=== PATIENT | female | born 1960 | race Caucasian/White ===

== ENCOUNTER 2017-09-25 14:14 | Emergency (ER) | payer BC ==
[~2017-09-25] VITALS: Ht 175.3 cm; Wt 78.6 kg
[2017-09-25 14:25] VITALS: BP 114/59; PULSE 67; RESP 19; O2SAT 97
[2017-09-25 14:29] VITALS: BP 114/59; PULSE 72; RESP 18; TEMP 98.1; O2SAT 95
[2017-09-25] MEDS ORDERED: LEVO.05 PO (14:33)
[2017-09-25] MEDS ORDERED: ROBA500T PO (14:33)
[2017-09-25] MEDS ORDERED: GABA600T PO (14:33)
--- NOTE | 2017-09-25 14:44 | PD ---
HPI Chief Complaint: Fall Time Seen by Provider: 14:26 Travel History International Travel<30 days: No Contact w/Intl Traveler<30days: No Traveled to known affect area: No History of Present Illness HPI The patient is a 56-year-old female who presents to the emergency department via EMS for right rib pain. The patient states she fell 2 days ago, after drinking alcohol, and a parking lot. Patient states she struck the lateral aspect of the right chest wall on an object. She complains of pain over the right lateral chest wall that is worse with inspiration, movement, and palpation. She denied any head injury or loss of consciousness. She denies any headache, neck pain, left-sided chest pain, or shortness of breath. She denies any associated nausea, vomiting, or abdominal pain. She has been drinking alcohol today. She denies any weakness or pain of the upper or lower extremities. PFSH Past Medical History Anxiety: Yes Depression: Yes ?: Not Tubal Ligation: Yes Past Surgical History Tonsillectomy: Yes Social History Alcohol Use: Yes Tobacco Use: Yes Substance Use: No Allergies-Medications (Allergen,Severity, Reaction): Coded Allergies: No Known Allergies (Unverified , 09/25/17) Reported Meds & Prescriptions Reported Meds & Active Scripts Active Reported Synthroid (Levothyroxine Sodium) 50 Mcg Tab 50 Mcg PO DAILY Gabapentin 600 Mg Tab 600 Mg PO TID Robaxin (Methocarbamol) 500 Mg Tab 500 Mg PO PRN Review of Systems Except as stated in HPI: all other systems reviewed are Neg HENT: No: Headaches, Neck Pain Cardiovascular: Positive: Chest Pain or Discomfort (right lateral chest wall pain) Respiratory: No: Shortness of Breath Gastrointestinal: No: Nausea, Vomiting, Abdominal Pain Musculoskeletal: No: Weakness Neurologic: No: Change in Mentation Psychiatric: Positive: Substance Abuse (alcohol use) Physical Exam Narrative GENERAL: Awake, alert, pleasant 56-year-old female who appears her stated age and is in no acute respiratory distress. The exam was performed in the presence of a female nurse. SKIN: Focused skin assessment warm/dry. HEAD: Atraumatic. Normocephalic. EYES: Pupils equal and round. No scleral icterus. No injection or drainage. ENT: No nasal bleeding or discharge. Breath smells of alcohol. NECK: Trachea midline. No JVD. CARDIOVASCULAR: Regular rate and rhythm. No murmur appreciated. Right lateral chest wall is tender to palpation, no crepitus. RESPIRATORY: No accessory muscle use. Clear to auscultation. Breath sounds equal bilaterally. GASTROINTESTINAL: Abdomen soft, non-tender, nondistended. No tenderness in the right or left upper quadrants. No visible ecchymosis. MUSCULOSKELETAL: No obvious deformities. No clubbing. No cyanosis. No edema. NEUROLOGICAL: Awake and alert. No obvious cranial nerve deficits. Motor grossly within normal limits. Normal speech. Nonfocal. Oriented 3. PSYCHIATRIC: Appropriate mood and affect; insight and judgment normal. Data Data Last Documented VS Vital Signs Date Time Temp Pulse Resp B/P (MAP) Pulse Ox O2 Delivery O2 Flow Rate FiO2 09/25/17 14:29 98.1 72 18 114/59 (77) 95 Room Air Orders Orders Ribs, Uni (W/O Exp Cxr) (09/25/17 ) Ketorolac Inj (Toradol Inj) (09/25/17 14:45) Basic Metabolic Panel (Bmp) (09/25/17 15:52) Complete Blood Count With Diff (09/25/17 15:52) Ct Thorax/ Chest W Iv Contrast (09/25/17 ) Ct Abdomen W Iv Contrast(Rout) (09/25/17 ) Alcohol (Ethanol) (09/25/17 15:52) Oral Contrast - Adult (09/25/17 16:02) Morphine Inj (Morphine Inj) (09/25/17 16:45) Ondansetron Inj (Zofran Inj) (09/25/17 16:45) Iohexol 350 Inj (Omnipaque 350 Inj) (09/25/17 18:08) Labs Laboratory Tests Test 09/25/17 16:18 White Blood Count 11.2 TH/MM3 Red Blood Count 4.33 MIL/MM3 Hemoglobin 13.0 GM/DL Hematocrit 38.2 % Mean Corpuscular Volume 88.3 FL Mean Corpuscular Hemoglobin 30.1 PG Mean Corpuscular Hemoglobin Concent 34.1 % Red Cell Distribution Width 15.5 % Platelet Count 357 TH/MM3 Mean Platelet Volume 7.2 FL Neutrophils (%) (Auto) 63.8 % Lymphocytes (%) (Auto) 29.3 % Monocytes (%) (Auto) 4.7 % Eosinophils (%) (Auto) 1.5 % Basophils (%) (Auto) 0.7 % Neutrophils # (Auto) 7.1 TH/MM3 Lymphocytes # (Auto) 3.3 TH/MM3 Monocytes # (Auto) 0.5 TH/MM3 Eosinophils # (Auto) 0.2 TH/MM3 Basophils # (Auto) 0.1 TH/MM3 CBC Comment DIFF FINAL Differential Comment Blood Urea Nitrogen 11 MG/DL Creatinine 0.80 MG/DL Random Glucose 75 MG/DL Calcium Level 8.0 MG/DL Sodium Level 138 MEQ/L Potassium Level 3.6 MEQ/L Chloride Level 104 MEQ/L Carbon Dioxide Level 25.2 MEQ/L Anion Gap 9 MEQ/L Estimat Glomerular Filtration Rate 75 ML/MIN Ethyl Alcohol Level 251 MG/DL MDM Medical Decision Making Medical Screen Exam Complete: Yes Emergency Medical Condition: Yes Medical Record Reviewed: Yes Interpretation(s) Laboratory Tests Test 09/25/17 16:18 White Blood Count 11.2 TH/MM3 Red Blood Count 4.33 MIL/MM3 Hemoglobin 13.0 GM/DL Hematocrit 38.2 % Mean Corpuscular Volume 88.3 FL Mean Corpuscular Hemoglobin 30.1 PG Mean Corpuscular Hemoglobin Concent 34.1 % Red Cell Distribution Width 15.5 % Platelet Count 357 TH/MM3 Mean Platelet Volume 7.2 FL Neutrophils (%) (Auto) 63.8 % Lymphocytes (%) (Auto) 29.3 % Monocytes (%) (Auto) 4.7 % Eosinophils (%) (Auto) 1.5 % Basophils (%) (Auto) 0.7 % Neutrophils # (Auto) 7.1 TH/MM3 Lymphocytes # (Auto) 3.3 TH/MM3 Monocytes # (Auto) 0.5 TH/MM3 Eosinophils # (Auto) 0.2 TH/MM3 Basophils # (Auto) 0.1 TH/MM3 CBC Comment DIFF FINAL Differential Comment Blood Urea Nitrogen 11 MG/DL Creatinine 0.80 MG/DL Random Glucose 75 MG/DL Calcium Level 8.0 MG/DL Sodium Level 138 MEQ/L Potassium Level 3.6 MEQ/L Chloride Level 104 MEQ/L Carbon Dioxide Level 25.2 MEQ/L Anion Gap 9 MEQ/L Estimat Glomerular Filtration Rate 75 ML/MIN Ethyl Alcohol Level 251 MG/DL Last Impressions Ribs X-Ray 09/25/17 0000 Signed Impressions: Service Date/Time: Monday, September 25, 2017 15:20 - CONCLUSION: Right seventh posterior rib fracture. Sree Good MD CT thorax reveals bibasilar subsegmental atelectasis. Subtle acute lower lateral rib fractures on the right. Thyromegaly. CT abdomen reveals no abdominal visceral injury. Differential Diagnosis Differential diagnosis includes rib fracture, chest wall contusion, pneumothorax , hemothorax, liver laceration, pulmonary contusion. Narrative Course Expiratory chest x-ray and lateral right rib x-ray was ordered. The patient was administered Toradol 60 mg IM for pain. Chest x-ray reveals posterior right seventh rib fracture. Therefore, CT of the thorax and abdomen was ordered to evaluate for possible underlying injury as the patient is intoxicated. IV was established and labs were sent. CT reveals fractures of the ribs, but no pneumothorax, hemothorax, pulmonary contusion, or abdominal visceral injury. The patient will be discharged home on ibuprofen and [place]. She is advised to stop drinking Diagnosis Primary Impression: Rib fractures Qualified Codes: S22.41XA - Multiple fractures of ribs, right side, initial encounter for closed fracture Additional Impression: Alcohol intoxication Qualified Codes: F10.920 - Alcohol use, unspecified with intoxication, uncomplicated Patient Instructions: General Instructions Additional Instructions: Stop drinking alcohol. Please provide the patient a copy of her x-ray results and CT results at discharge. Medications as directed. Follow-up with a primary physician. Return if symptoms worsen or progress. Med/Other Pt SpecificInfo: Prescription(s) given Scripts Hydrocodone-Acetaminophen ([place]) 5 Mg-325 Mg Tab 1 TAB PO Q6H Y for PAIN, #15 TAB 0 Refills Prov: Osito Villeda MD 09/25/17 Ibuprofen (Ibuprofen) 600 Mg Tab 600 MG PO Q6H Y for Pain/Inflammation, #20 TAB 0 Refills Prov: Osito Villeda MD 09/25/17 Disposition: DISCHARGE HOME Condition: Stable Osito Villeda MD Sep 25, 2017 14:44
[2017-09-25] MEDS ORDERED: KETOROLAC TROMETHAMINE 60 MG/2 ML (IM) VIAL IM ONE (14:45)
--- NOTE | 2017-09-25 15:43 | RADRPT ---
EXAM DATE/TIME: 09/25/2017 15:20 [facility] COMPARISON: No previous studies available for comparison. INDICATIONS : Right sided rib pain. MEDICAL HISTORY : None. SURGICAL HISTORY : None. ENCOUNTER: Initial ACUITY: 2 days PAIN SCORE: 10/10 LOCATION: Right middle chest FINDINGS: Multiple views of the right ribs were performed. There is fracture of right posterior seventh rib. No destructive lesions or areas of periosteal thickening are seen. CONCLUSION: Right seventh posterior rib fracture. Sree Good MD on September 25, 2017 at 15:40 Board Certified Radiologist. This report was verified electronically.
[2017-09-25 16:32] LABS: AUTOMATED NEUTROPHIL # 7.1 TH/MM3 (1.8-7.7); BASOPHIL # 0.1 TH/MM3 (0-0.2); BASOPHIL % 0.7 % (0.0-2.0); EOSINOPHIL # 0.2 TH/MM3 (0-0.4); EOSINOPHIL % 1.5 % (0.0-4.0); HEMATOCRIT 38.2 % (35.0-46.0); LYMPH % 29.3 % (9.0-44.0); LYMPHOCYTE # 3.3 TH/MM3 (1.0-4.8); MEAN CELL VOLUME 88.3 FL (80.0-100.0); MEAN CORPUSCULAR HEMOGLOBIN 30.1 PG (27.0-34.0); MEAN CORPUSCULAR HGB CONC 34.1 % (32.0-36.0); MEAN PLATELET VOLUME 7.2 FL (7.0-11.0); MONO % 4.7 % (0.0-8.0); MONOCYTE # 0.5 TH/MM3 (0-0.9); NEUT % 63.8 % (16.0-70.0); PLATELET COUNT 357 TH/MM3 (150-450); RED BLOOD COUNT 4.33 MIL/MM3 (4.00-5.30); RED CELL DISTRIBUTION WIDTH 15.5 % (11.6-17.2); WHITE BLOOD COUNT 11.2 TH/MM3 (4.0-11.0)
[2017-09-25] MEDS ORDERED: ONDANSETRON HCL 4 MG/2 ML VIAL IV PUSH ONE (16:45)
[2017-09-25] MEDS ORDERED: MORPHINE SULFATE 4 MG/ML INJ IV PUSH ONE (16:45)
[2017-09-25 17:21] LABS: BICARBONATE 25.2 MEQ/L (21.0-32.0); CREATININE 0.8 MG/DL (0.50-1.00)
[2017-09-25] MEDS ORDERED: IOHEXOL 350 MG/ML 10 ML VIAL (for RAD DIAG) IVCONTRAST ONE (18:08)
--- NOTE | 2017-09-25 18:13 | RADRPT ---
EXAM DATE/TIME: 09/25/2017 17:45 [facility] COMPARISON: No previous studies available for comparison. INDICATIONS : Fell 2 days ago complains of right side pain IV CONTRAST: 100 cc Omnipaque 350 (iohexol) IV ; Cumulative dose for multiple exams. RADIATION DOSE: 5.37 CTDIvol (mGy) ; Combined studies - Thorax/Abdomen/Pelvis MEDICAL HISTORY : None SURGICAL HISTORY : Tubal ligation. ENCOUNTER: Initial ACUITY: 2 days PAIN SCALE: 6/10 LOCATION: Right chest TECHNIQUE: Volumetric scanning of the chest was performed. Using automated exposure control and adjustment of t he mA and/or kV according to patient size, radiation dose was kept as low as reasonably achievable to obtain optimal diagnostic quality images. DICOM format image data is available electronically for review and comparison. Follow-up recommendations for detected pulmonary nodules are based at a minimum on nodule size and pa tient risk factors according to Fleischner Society Guidelines. FINDINGS: LUNGS: There is no consolidation or pneumothorax. Minimal bibasilar densities. No concerning pulmonary nodul e is visualized. PLEURA: There is no pleural thickening or pleural effusion. MEDIASTINUM: The heart and great vessels demonstrate no acute abnormality. There is no mediastinal or hilar lymph adenopathy. AXILLAE: Within normal limits. No lymphadenopathy. SKELETAL: There are some subtle right lower lateral rib fractures. There is also old rib fractures.. MISCELLANEOUS: The visualized upper abdominal organs demonstrate no acute abnormality. Enlarged thyroid gland contai tiffanie small nodules. CONCLUSION: 1. Bibasilar subsegmental atelectasis. 2. Subtle acute lower lateral rib fractures on the right. 3. Thyroidmegaly. Sree Good MD on September 25, 2017 at 18:08 Board Certified Radiologist. This report was verified electronically.
--- NOTE | 2017-09-25 18:14 | RADRPT ---
EXAM DATE/TIME: 09/25/2017 17:45 [facility] COMPARISON: No previous studies available for comparison. INDICATIONS : Fell right sided pain. IV CONTRAST: 100 cc Omnipaque 350 (iohexol) IV ; Cumulative dose for multiple exams. ORAL CONTRAST: No oral contrast ingested. RADIATION DOSE: 5.37 CTDIvol (mGy) ; Combined studies - Thorax/Abdomen/Pelvis MEDICAL HISTORY : None SURGICAL HISTORY : Tubal ligation. ENCOUNTER: Initial ACUITY: 2 days PAIN SCALE: 6/10 LOCATION: Right upper quadrant TECHNIQUE: Volumetric scanning of the abdomen was performed. Using automated exposure control and adjustment of the mA and/or kV according to patient size, radiation dose was kept as low as reasonably achievable to obtain optimal diagnostic quality images. DICOM format image data is available electronically for review and comparison. FINDINGS: LOWER LUNGS: The visualized lower lungs are clear. LIVER: Homogeneous density without lesion. There is no dilation of the biliary tree. No calcified gallstones . SPLEEN: Normal size without lesion. PANCREAS: Within normal limits. KIDNEYS: Normal in size and shape. There is no mass, stone, or hydronephrosis. ADRENAL GLANDS: Within normal limits. AORTA/RETROPERITONEAL: There is no aneurysm or lymphadenopathy. BOWEL/MESENTERY: The stomach and visualized small and large bowel demonstrate no abnormality. ABDOMINAL WALL: Within normal limits. MUSCULOSKELETAL: Subtle right-sided rib fractures. POST CONTRAST: No abnormal areas of enhancement are seen. CONCLUSION: 1. No abdominal visceral injury. Sree Good MD on September 25, 2017 at 18:11 Board Certified Radiologist. This report was verified electronically.
[2017-09-25] MEDS ORDERED: IBUP-232 PO (18:21)
[2017-09-25] MEDS ORDERED: NORC5TAB PO (18:21)
[2017-09-25 18:26] VITALS: BP 104/61; PULSE 62; RESP 18; O2SAT 95
[2017-09-25] MEDS ORDERED: BUSP15TA PO (21:24)
== END 2017-09-25 21:34 | disposition home or self-care (01) ==
LOC: NEPE 14:14
DX: S22.41XA Multiple fractures of ribs, right side, initial encounter for closed fracture (principal); F10.920 Alcohol use, unspecified with intoxication, uncomplicated; F32.9 Major depressive disorder, single episode, unspecified; F41.9 Anxiety disorder, unspecified; J98.11 Atelectasis; Z72.0 Tobacco use; Z79.899 Other long term (current) drug therapy; W18.00XA Striking against unspecified object with subsequent fall, initial encounter; Y92.481 Parking lot as the place of occurrence of the external cause
CPT/HCPCS: 71100; 71260; 74160; 80048; 80307; 85025; 96372; 96374; 96375; 99285; J1885; J2270; J2405; Q9967

== ENCOUNTER 2017-09-25 21:13 | Observation (INO) | payer BC, OTHER ==
[~2017-09-25] VITALS: Ht 167.6 cm; Wt 75.0 kg
[~2017-09-25 21:13] MED LIST: GABA600T PO; IBUP-232 PO; LEVO.05 PO; NORC5TAB PO; ROBA500T PO
[2017-09-25 21:19] VITALS: BP 93/61; PULSE 66; RESP 16; TEMP 97.8; O2SAT 97
[2017-09-25] MEDS ORDERED: BUSP15TA PO (21:24)
[2017-09-25] MEDS ORDERED: SODIUM CHLOR 0.9% 1000 ML INJ 1,000 ML IV ONE ×2 (21:26→23:15)
[2017-09-25] MEDS ORDERED: SODIUM CHLORIDE 0.9% FLUSH 10 ML FLUSH IVF PRN (21:30)
[2017-09-25 21:33] VITALS: O2SAT 91
--- NOTE | 2017-09-25 21:34 | PD ---
HPI Chief Complaint: OD/ Ingestion Time Seen by Provider: 21:25 Travel History International Travel<30 days: No Contact w/Intl Traveler<30days: No Traveled to known affect area: No History of Present Illness HPI The patient is a 56 year old female who presents to the [facility] emergency department with a history of intentional overdose of her gabapentin and BuSpar prior to arrival arrival. She reports that this occurred at approximately 8 PM, nearly 2 hours ago. The patient reports that she took approximately 8 tablets of her gabapentin, 600 mg tablet, and 5 tablets of her BuSpar, 15 mg tablet. The patient reports that she has recently been increasingly depressed due to losing her home. She reports a history of being diagnosed with anxiety and depression. She denies any prior history of suicide attempt. The patient incidentally also reports having right-sided chest wall pain. The patient reports that 3 days ago she fell. She reports that she was seen in the emergency department this facility earlier today regarding this and diagnosed with multiple right-sided rib fractures. The patient was given a prescription for [place], however she has not filled the prescription yet. Otherwise on review of systems, the patient denies having any known recent fevers, cough, congestion, neck pain, shortness of breath, abdominal pain, vomiting, diarrhea, urinary symptoms, or neurologic symptoms. PFS Past Medical History Narrative Medical The patient's past medical history is significant for a recent fall with right- sided rib fractures, history of anxiety and depression, hypothyroid disorder Anxiety: Yes Depression: Yes ?: Not Tubal Ligation: Yes Past Surgical History Narrative Surgical The patient's past surgical history is significant for bilateral tubal ligation and a tonsillectomy. Tonsillectomy: Yes Social History Alcohol Use: Yes Tobacco Use: Yes Substance Use: No Allergies-Medications (Allergen,Severity, Reaction): Coded Allergies: No Known Allergies (Unverified , 09/25/17) Reported Meds & Prescriptions Reported Meds & Active Scripts Active Reported Buspirone (Buspirone HCl) 15 Mg Tab 15 Mg PO BID Synthroid (Levothyroxine Sodium) 50 Mcg Tab 50 Mcg PO DAILY Gabapentin 600 Mg Tab 600 Mg PO TID Robaxin (Methocarbamol) 500 Mg Tab 500 Mg PO PRN Review of Systems Except as stated in HPI: all other systems reviewed are Neg General / Constitutional: No: Fever Eyes: No: Visual changes HENT: No: Headaches Cardiovascular: Positive: Chest Pain or Discomfort Respiratory: No: Shortness of Breath Gastrointestinal: No: Abdominal Pain Genitourinary: No: Dysuria Musculoskeletal: No: Pain Skin: No Rash Neurologic: No: Weakness Psychiatric: Positive: Depression, Suicidal Ideations, Mood Disorder Endocrine: No: Polydipsia Hematologic/Lymphatic: No: Easy Bruising Physical Exam Narrative General: The patient is a well-developed well-nourished female, flat affect on exam. Head and Neck exam: Head is normocephalic atraumatic. Eyes: EOMI, pupils are equal round and reactive to light. Nose: Midline septum with pink mucous membranes Mouth: Dentition unremarkable. Moist mucus membranes. Posterior oropharynx is not erythematous. No tonsillar hypertrophy. Uvula midline. Airway patent. Neck: No palpable lymphadenopathy. No nuchal rigidity. No thyromegaly. Cardiovascular: Regular rate and rhythm without murmurs, gallops, or rubs. The patient has chest wall tenderness on palpation along the right lateral chest wall. There is no erythema or ecchymosis noted. Lungs: Clear to auscultation bilaterally. No wheezes, rhonchi, or rales. Abdomen: Soft, without tenderness to palpation in all 4 quadrants of the abdomen. No guarding, rebound, or rigidity. Normal bowel sounds are audible. No tenderness on palpation of McBurney's point. Extremities: No clubbing, cyanosis, or edema. 2+ pulses in all 4 extremities. No calf tenderness on palpation. Back: No spinous process tenderness to palpation. No costovertebral angle tenderness to palpation. Neurologic Exam: Grossly nonfocal. Skin Exam: No rash noted. Intact skin that is warm and dry. Data Data Last Documented VS Vital Signs Date Time Temp Pulse Resp B/P (MAP) Pulse Ox O2 Delivery O2 Flow Rate FiO2 09/26/17 04:47 67 12 85/52 (63) 97 Nasal Cannula 2.00 09/25/17 21:19 97.8 Orders Orders Electrocardiogram (09/25/17 21:26) Complete Blood Count With Diff (09/25/17 21:26) Comprehensive Metabolic Panel (09/25/17 21:26) Prothrombin Time / Inr (Pt) (09/25/17 21:26) Act Partial Throm Time (Ptt) (09/25/17 21:26) Osmolality,Serum (09/25/17 21:26) Osmolality, Urine (09/25/17 21:26) Urinalysis - C+S If Indicated (09/25/17 21:26) Blood Glucose (09/25/17 21:26) Iv Access Insert/Monitor (09/25/17 21:26) Ecg Monitoring (09/25/17 21:26) Oximetry (09/25/17 21:26) Sodium Chloride 0.9% Flush (Ns Flush) (09/25/17 21:30) Sodium Chlor 0.9% 1000 Ml Inj (Ns 1000 M (09/25/17 21:26) Drug Screen, Random Urine (09/25/17 21:26) Alcohol (Ethanol) (09/25/17 21:26) Salicylates (Aspirin) (09/25/17 21:26) Tylenol (Acetaminophen) (09/25/17 21:26) Potassium Chloride (Kcl) (09/25/17 23:00) Sodium Chlor 0.9% 1000 Ml Inj (Ns 1000 M (09/25/17 23:15) Psych Screen (09/25/17 23:28) Sodium Chlor 0.9% 1000 Ml Inj (Ns 1000 M (09/26/17 03:00) Sodium Chlorid 0.9% 500 Ml Inj (Ns 500 M (09/26/17 04:30) Calcium Gluconate Inj (Calcium Gluconate (09/26/17 04:30) Labs Laboratory Tests Test 09/25/17 21:38 09/25/17 22:49 White Blood Count 11.0 TH/MM3 Red Blood Count 4.60 MIL/MM3 Hemoglobin 13.5 GM/DL Hematocrit 40.6 % Mean Corpuscular Volume 88.3 FL Mean Corpuscular Hemoglobin 29.3 PG Mean Corpuscular Hemoglobin Concent 33.2 % Red Cell Distribution Width 15.7 % Platelet Count 388 TH/MM3 Mean Platelet Volume 7.4 FL Neutrophils (%) (Auto) 49.7 % Lymphocytes (%) (Auto) 42.6 % Monocytes (%) (Auto) 5.2 % Eosinophils (%) (Auto) 2.0 % Basophils (%) (Auto) 0.5 % Neutrophils # (Auto) 5.5 TH/MM3 Lymphocytes # (Auto) 4.7 TH/MM3 Monocytes # (Auto) 0.6 TH/MM3 Eosinophils # (Auto) 0.2 TH/MM3 Basophils # (Auto) 0.1 TH/MM3 CBC Comment DIFF FINAL Differential Comment Prothrombin Time 9.9 SEC Prothromb Time International Ratio 1.0 RATIO Activated Partial Thromboplast Time 24.4 SEC Blood Urea Nitrogen 11 MG/DL Creatinine 1.14 MG/DL Random Glucose 94 MG/DL Total Protein 8.3 GM/DL Albumin 3.7 GM/DL Calcium Level 8.4 MG/DL Alkaline Phosphatase 123 U/L Aspartate Amino Transf (AST/SGOT) 19 U/L Alanine Aminotransferase (ALT/SGPT) 20 U/L Total Bilirubin 0.2 MG/DL Sodium Level 136 MEQ/L Potassium Level 3.4 MEQ/L Chloride Level 102 MEQ/L Carbon Dioxide Level 25.8 MEQ/L Anion Gap 8 MEQ/L Estimat Glomerular Filtration Rate 50 ML/MIN Serum Osmolality 353 MOSM/KG Salicylates Level 2.0 MG/DL Acetaminophen Level LESS THAN 2.0 MCG/ML Ethyl Alcohol Level 245 MG/DL Urine Color LIGHT-YELLOW Urine Turbidity HAZY Urine pH 6.0 Urine Specific [place] GREATER THAN 1.050 Urine Protein TRACE mg/dL Urine Glucose (UA) NEG mg/dL Urine Ketones NEG mg/dL Urine Occult Blood NEG Urine Nitrite NEG Urine Bilirubin NEG Urine Urobilinogen LESS THAN 2.0 MG/DL Urine Leukocyte Esterase NEG Urine RBC 2 /hpf Urine WBC 7 /hpf Urine Squamous Epithelial Cells 30 /hpf Urine Bacteria RARE /hpf Urine Mucus FEW /lpf Microscopic Urinalysis Comment CULT NOT INDICATED Urine Osmolality 306 MOSM/KG Urine Opiates Screen POS Urine Barbiturates Screen NEG Urine Amphetamines Screen NEG Urine Benzodiazepines Screen NEG Urine Cocaine Screen NEG Urine Cannabinoids Screen NEG MDM Medical Decision Making Medical Screen Exam Complete: Yes Emergency Medical Condition: Yes Medical Record Reviewed: Yes Differential Diagnosis Depression with suicide attempt, versus substance induced mood disorder Narrative Course During the course of the patients emergency department visit, the patients history, examination, and differential diagnosis were reviewed with the patient. The patient was placed on a technology training associate with oximetry and frequent blood pressure monitoring. The patient had IV access obtained and blood work sent for analysis. The patient had an ECG done on arrival. The patient's ECG reveals a sinus rhythm heart rate of 62, QRS duration is 100 ms, QTC 418 ms, no acute ST segment elevation. The patient's Mendoza act was reviewed. The patient was initially provided normal saline 1 L IV fluid bolus. The patients laboratory studies were reviewed and remarkable for a CBC that is within normal limits, CMP is remarkable for potassium of 3.4, creatinine 1.14 calcium 8.4, alkaline phosphatase 123, total protein 8.3, serum osmolality 353, PT 9.9, PTT 24.4, urine drug screen is positive for opiates, acetaminophen less than 2, alcohol 245, urinalysis shows an increased specific gravity consistent with mild dehydration, white blood cell count 7, rare bacteria, with 30 squamous epithelial cells suggestive of contamination, urine osmolality 306. The patient's mild hypokalemia was supplemented orally. The patient was treated with a second liter of normal saline IV fluids. The patient has remained awake and alert. The patient has been ambulatory to the bathroom. The patient's blood pressure was noted to be 93/61 on initial arrival. From reviewing the record the patient's blood pressure in the past has been low normal in the low 100s. The patient does have concentrated urine to suggest some dehydration with a creatinine that is also increased compared to previous from earlier today. The patient was given additional normal saline IV fluids. The patient's calcium was low at 8.4. The patient was given calcium gluconate 1 g IV 1. Review the record reveals that the patient was seen in the emergency department earlier today on September 25 at approximately 4 PM. The patient was given a dose of morphine which would explain the patient's urine drug screen being positive for opiates. The patient was evaluated related to a fall and did have rib series, chest CT, abdomen CT done. Rib x-ray revealed a right seventh posterior rib fracture. Chest CT revealed bibasilar subsegmental atelectasis, subtle acute lower lateral rib fractures on the right, thyromegaly. CT scan of the abdomen and pelvis showed no abdominal visceral injury. The patient has been medically cleared for evaluation by the psychiatric screener under a [place] act. Diagnosis Primary Impression: Depression with suicidal ideation Toyin Tomas MD Sep 25, 2017 21:34
[2017-09-25 21:55] LABS: AUTOMATED NEUTROPHIL # 5.5 TH/MM3 (1.8-7.7); BASOPHIL # 0.1 TH/MM3 (0-0.2); BASOPHIL % 0.5 % (0.0-2.0); EOSINOPHIL # 0.2 TH/MM3 (0-0.4); HEMATOCRIT 40.6 % (35.0-46.0); HEMOGLOBIN 13.5 GM/DL (11.6-15.3); LYMPH % 42.6 % (9.0-44.0); LYMPHOCYTE # 4.7 TH/MM3 (1.0-4.8); MEAN CELL VOLUME 88.3 FL (80.0-100.0); MEAN CORPUSCULAR HEMOGLOBIN 29.3 PG (27.0-34.0); MEAN CORPUSCULAR HGB CONC 33.2 % (32.0-36.0); MEAN PLATELET VOLUME 7.4 FL (7.0-11.0); MONO % 5.2 % (0.0-8.0); MONOCYTE # 0.6 TH/MM3 (0-0.9); NEUT % 49.7 % (16.0-70.0); PLATELET COUNT 388 TH/MM3 (150-450); RED CELL DISTRIBUTION WIDTH 15.7 % (11.6-17.2)
[2017-09-25 22:03] LABS: PROTHROMBIN TIME - PATIENT 9.9 SEC (9.8-11.6)
[2017-09-25 22:20] LABS: ALBUMIN 3.7 GM/DL (3.4-5.0); ALKALINE PHOSPHATASE 123 U/L (45-117); ALT (GPT) 20 U/L (10-53); AST (GOT) 19 U/L (15-37); BICARBONATE 25.8 MEQ/L (21.0-32.0); BLOOD UREA NITROGEN 11 MG/DL (7-18); CALCIUM 8.4 MG/DL (8.5-10.1); CHLORIDE 102 MEQ/L (98-107); CREATININE 1.14 MG/DL (0.50-1.00); GLOMERULAR FILTRATION RATE 50 ML/MIN (>89); GLUCOSE,RANDOM 94 MG/DL (74-106); SODIUM (NA) 136 MEQ/L (136-145); TOTAL BILIRUBIN ADULT 0.2 MG/DL (0.2-1.0); TOTAL PROTEIN 8.3 GM/DL (6.4-8.2)
[2017-09-25 22:21] LABS: ACETAMINOPHEN LESS THAN 2.0 MCG/ML (10.0-30.0)
[2017-09-25] MEDS ORDERED: POTASSIUM CHLORIDE 20 MEQ CONTROLLED RELEASE TAB PO ONE (23:00)
[2017-09-25 23:01] LABS: BACTERIA, URINE RARE /hpf; BILIRUBIN, URINE NEG (NEG); BLOOD, URINE NEG (NEG); GLUCOSE,URINE NEG (NEG); KETONE, URINE NEG (NEG); MUCUS URINE FEW /lpf (OCC); NITRITE,URINE NEG (NEG); SQUAMOUS EPITHELIAL CELL URINE 30 /hpf (0-5); URINE COLOR LIGHT-YELLOW (YELLW/STRAW); URINE LEUKOCYTE ESTERASE NEG (NEG)
[2017-09-26] VITALS (12 sets, daily range): BP systolic 76–106; BP diastolic 48–63; PULSE 60–72; RESP 12–15; O2SAT 94–100
[2017-09-26] MEDS ORDERED: SODIUM CHLOR 0.9% 1000 ML INJ 1,000 ML IV ONE (03:00)
[2017-09-26] MEDS ORDERED: CALCIUM GLUCONATE INJ 1 GM in SODIUM CHLORIDE 0.9% INJ 100 ML IV ONE (04:30)
[2017-09-26] MEDS ORDERED: SODIUM CHLORID 0.9% 500 ML INJ 500 ML IV ONE (04:30)
[2017-09-26] MEDS ORDERED: SODIUM CHLOR 0.9% 1000 ML INJ 1,000 ML IV SCH (06:50)
[2017-09-26] MEDS ORDERED: MAGNESIUM HYDROXIDE SUSP 30 ML CUP PO PRN (07:00)
[2017-09-26] MEDS ORDERED: BISACODYL 10 MG SUPP RECTAL PRN (07:00)
[2017-09-26] MEDS ORDERED: ONDANSETRON HCL 4 MG/2 ML VIAL IVP PRN (07:00)
[2017-09-26] MEDS ORDERED: SENNOSIDES 8.6 MG TAB PO PRN (07:00)
[2017-09-26] MEDS ORDERED: LACTULOSE SYRUP 20 GM/30 ML CUP PO PRN (07:00)
[2017-09-26] MEDS ORDERED: SODIUM CHLORIDE 0.9% FLUSH 10 ML FLUSH IV FLUSH PRN (07:00)
[2017-09-26] MEDS ORDERED: NALOXONE HCL 0.4 MG/ML AMP IV PUSH PRN (07:00)
[2017-09-26] MEDS ORDERED: ACETAMINOPHEN 325 MG TAB PO PRN (07:00)
[2017-09-26] MEDS ORDERED: SODIUM CHLORIDE 0.9% FLUSH 10 ML FLUSH IV FLUSH SCH (09:00)
[2017-09-26] MEDS ORDERED: DOCUSATE SODIUM 50 MG/SENNA 8.6 MG TAB PO SCH (09:00)
--- NOTE | 2017-09-26 10:16 | HHI.HP ---
HPI Service [facility] Hospitalists Primary Care Physician No Primary Care Physician Admission Diagnosis Intentional overdose, BA Diagnoses: Chief Complaint: Altered mental status Intentional overdose Travel History International Travel<30 Days: No Contact w/Intl Traveler <30 Da: No Traveled to Known Affected Are: No History of Present Illness Written by Jennifer Talavera, acting as scribe for Dr. Jain on 09/26/17 at 10: 14. This is a 52yr old female with a past medical history significant for depression, anxiety and hypothyroidism who presents to [facility] ED with altered mental status after intentionally overdosing on gabapentin and BuSpar. Reportedly, patient took 8 600mg gabapentin and 5 15mg Buspar. Patient was also intoxicated with alcohol level of 245 and urine drug screen positive for opiates. Patient was actually seen in the ED yesterday with right-sided rib pain secondary to acute rib fracture the patient sustained when she fell in a parking lot while intoxicated. ED physician contacted poison control who did not recommend any specific follow-up. Patient's EKG was reviewed and showed normal sinus rhythm. She was evaluated by psychiatry and was accepted for inpatient admission to the psychiatric unit once medically stable. Patient was found to be slightly hypokalemic with potassium of 3.4 as well as acute kidney injury with creatinine of 1.14. She is also hypotensive. At the time of her discharge from the ED yesterday, patient was prescribed hydrocodone which she states she never filled. Review of Systems Except as stated in HPI: all other systems reviewed are Neg Past Family Social History Past Medical History Depression Anxiety Hypothyroidism Past Surgical History BTL Tonsillectomy Reported Medications Buspirone (Buspirone HCl) 15 Mg Tab 15 Mg PO BID Synthroid (Levothyroxine Sodium) 50 Mcg Tab 50 Mcg PO DAILY Gabapentin 600 Mg Tab 600 Mg PO TID Robaxin (Methocarbamol) 500 Mg Tab 500 Mg PO PRN Allergies: Coded Allergies: No Known Allergies (Unverified , 09/25/17) Active Ordered Medications Current Medications Medications (Trade) Dose Ordered Sig/Jonelle Route Start Time Stop Time Status Last Admin Sodium Chloride 1,000 ml @ 100 mls/hr Q10H IV 09/26/17 06:50 09/26/17 07:00 (NS Flush) 2 ml UNSCH PRN IV FLUSH 09/26/17 07:00 (NS Flush) 2 ml BID IV FLUSH 09/26/17 09:00 (Tylenol) 650 mg Q4H PRN PO 09/26/17 07:00 (Zofran Inj) 4 mg Q6H PRN IVP 09/26/17 07:00 (Narcan Inj) 0.4 mg UNSCH PRN IV PUSH 09/26/17 07:00 (Ade-Colace) 1 tab BID PO 09/26/17 09:00 (Milk Of Magnesia Liq) 30 ml Q12H PRN PO 09/26/17 07:00 (Senokot) 17.2 mg Q12H PRN PO 09/26/17 07:00 (Dulcolax Supp) 10 mg DAILY PRN RECTAL 09/26/17 07:00 (Lactulose Liq) 30 ml DAILY PRN PO 09/26/17 07:00 Family History Patient denies any family medical history of stroke or [place] Denies any depression Social History Patient has a history of tobacco and alcohol use/abuse. Patient denies illicit drug use. Physical Exam Vital Signs Vital Signs Date Time Temp Pulse Resp B/P (MAP) Pulse Ox O2 Delivery O2 Flow Rate FiO2 09/26/17 06:50 69 15 106/63 (77) 99 Nasal Cannula 2.00 09/26/17 06:06 60 14 97/54 (68) 100 Nasal Cannula 2.00 09/26/17 05:48 72 14 95/50 (65) 99 Nasal Cannula 2.00 09/26/17 05:32 68 12 93/55 (68) 97 Nasal Cannula 2.00 09/26/17 05:11 64 12 91/54 (66) 96 Nasal Cannula 2.00 09/26/17 04:47 67 12 85/52 (63) 97 Nasal Cannula 2.00 09/26/17 04:25 70 12 81/53 (62) 98 Nasal Cannula 2.00 09/26/17 03:48 62 12 85/51 (62) 98 Nasal Cannula 2.00 09/26/17 03:13 62 14 82/52 (62) 99 Nasal Cannula 2.00 09/26/17 02:50 63 14 76/48 (57) 94 Room Air 09/25/17 21:33 91 Room Air 09/25/17 21:19 97.8 66 16 93/61 (72) 97 Physical Exam GENERAL: This is a well-nourished, well-developed female patient, in no apparent distress. Awake and oriented x 3. SKIN: No rashes, ecchymoses or lesions. Cool and dry. HEAD: Atraumatic. Normocephalic. No temporal or scalp tenderness. EYES: Pupils equal round and reactive. Extraocular motions intact. No scleral icterus. No injection or drainage. ENT: Nose without bleeding or purulent drainage. Throat without erythema, tonsillar hypertrophy or exudate. Uvula midline. Airway patent. NECK: Trachea midline. No lymphadenopathy. Supple, nontender, no meningeal signs. CARDIOVASCULAR: Regular rate and rhythm without murmurs, gallops, or rubs. RESPIRATORY: Clear to auscultation. Breath sounds equal bilaterally. No wheezes , rales, or rhonchi. GASTROINTESTINAL: Abdomen soft, non-tender, nondistended. No guarding. MUSCULOSKELETAL: Extremities without clubbing, cyanosis, or edema. No joint tenderness, effusion, or edema noted. No calf tenderness. (+)Tenderness to palpation over right ribs. NEUROLOGICAL: Awake and alert. Cranial nerves II through XII grossly intact. Motor and sensory grossly within normal limits. Five out of 5 muscle strength in all muscle groups. Normal speech. Laboratory Laboratory Tests Test 09/25/17 21:38 09/25/17 22:49 White Blood Count 11.0 Red Blood Count 4.60 Hemoglobin 13.5 Hematocrit 40.6 Mean Corpuscular Volume 88.3 Mean Corpuscular Hemoglobin 29.3 Mean Corpuscular Hemoglobin Concent 33.2 Red Cell Distribution Width 15.7 Platelet Count 388 Mean Platelet Volume 7.4 Neutrophils (%) (Auto) 49.7 Lymphocytes (%) (Auto) 42.6 Monocytes (%) (Auto) 5.2 Eosinophils (%) (Auto) 2.0 Basophils (%) (Auto) 0.5 Neutrophils # (Auto) 5.5 Lymphocytes # (Auto) 4.7 Monocytes # (Auto) 0.6 Eosinophils # (Auto) 0.2 Basophils # (Auto) 0.1 CBC Comment DIFF FINAL Differential Comment Prothrombin Time 9.9 Prothromb Time International Ratio 1.0 Activated Partial Thromboplast Time 24.4 Blood Urea Nitrogen 11 Creatinine 1.14 Random Glucose 94 Total Protein 8.3 Albumin 3.7 Calcium Level 8.4 Alkaline Phosphatase 123 Aspartate Amino Transf (AST/SGOT) 19 Alanine Aminotransferase (ALT/SGPT) 20 Total Bilirubin 0.2 Sodium Level 136 Potassium Level 3.4 Chloride Level 102 Carbon Dioxide Level 25.8 Anion Gap 8 Estimat Glomerular Filtration Rate 50 Serum Osmolality 353 Salicylates Level 2.0 Acetaminophen Level LESS THAN 2.0 Ethyl Alcohol Level 245 Urine Color LIGHT-YELLOW Urine Turbidity HAZY Urine pH 6.0 Urine Specific [place] GREATER THAN 1.050 Urine Protein TRACE Urine Glucose (UA) NEG Urine Ketones NEG Urine Occult Blood NEG Urine Nitrite NEG Urine Bilirubin NEG Urine Urobilinogen LESS THAN 2.0 Urine Leukocyte Esterase NEG Urine RBC 2 Urine WBC 7 Urine Squamous Epithelial Cells 30 Urine Bacteria RARE Urine Mucus FEW Microscopic Urinalysis Comment CULT NOT INDICATED Urine Osmolality 306 Urine Opiates Screen POS Urine Barbiturates Screen NEG Urine Amphetamines Screen NEG Urine Benzodiazepines Screen NEG Urine Cocaine Screen NEG Urine Cannabinoids Screen NEG Result Diagram: [id number]/25/[id number] Caprini VTE Risk Assessment Caprini VTE Risk Assessment: No/Low Risk (score <= 1) Caprini Risk Assessment Model Point Value = 1 Point Value = 2 Point Value = 3 Point Value = 5 Age 41-60 Minor surgery BMI > 25 kg/m2 Swollen legs Varicose veins or History of unexplained or recurrent spontaneous Oral contraceptives or hormone replacement Sepsis (< 1 month) Serious lung disease, including pneumonia (< 1 month) Abnormal pulmonary function Acute myocardial infarction Congestive heart failure (< 1 month) History of inflammatory bowel disease Medical patient at bed rest Age 61-74 Arthroscopic surgery Major open surgery (> 45 min) Laparoscopic surgery (> 45 min) Malignancy Confined to bed (> 72 hours) Immobilizing plaster cast Central venous access Age >= 75 History of VTE Family history of VTE Factor V Leiden Prothrombin [id number] Lupus anticoagulant Anticardiolipin antibodies Elevated serum homocysteine Heparin-induced thrombocytopenia Other congenital or acquired thrombophilia Stroke (< 1 month) Elective arthroplasty Hip, pelvis, or leg fracture Acute spinal cord injury (< 1 month) Prophylaxis Regimen Total Risk Factor Score Risk Level Prophylaxis Regimen 0-1 Low Early ambulation 2 Moderate Order ONE of the following: *Sequential Compression Device (SCD) *Heparin 5000 units SQ BID 3-4 Higher Order ONE of the following medications: *Heparin 5000 units SQ TID *Enoxaparin/Lovenox 40 mg SQ daily (WT < 150 kg, CrCl > 30 mL/min) *Enoxaparin/Lovenox 30 mg SQ daily (WT < 150 kg, CrCl > 10-29 mL/min) *Enoxaparin/Lovenox 30 mg SQ BID (WT < 150 kg, CrCl > 30 mL/min) AND/OR *Sequential Compression Device (SCD) 5 or more Highest Order ONE of the following medications: *Heparin 5000 units SQ TID (Preferred with Epidurals) *Enoxaparin/Lovenox 40 mg SQ daily (WT < 150 kg, CrCl > 30 mL/min) *Enoxaparin/Lovenox 30 mg SQ daily (WT < 150 kg, CrCl > 10-29 mL/min) *Enoxaparin/Lovenox 30 mg SQ BID (WT < 150 kg, CrCl > 30 mL/min) AND *Sequential Compression Device (SCD) Assessment and Plan Problem List: (1) Overdose ICD Code: T50.901A - Poisoning by unspecified drugs, medicaments and biological substances, accidental (unintentional), initial encounter Assessment and Plan 52yr old female with a past medical history significant for depression , anxiety and hypothyroidism who presents to [facility] ED with altered mental status after intentionally overdosing on gabapentin and BuSpar. Depression Suicidal ideation status post intentional overdose with alcohol, BuSpar and gabapentin Anxiety - EKG personally reviewed, normal sinus rhythm - Poison control contacted by ED physician who did not recommend any specific follow-up/monitoring - Psychiatry consulted, appreciate recommendations. Patient has been accepted to inpatient psychiatry once medically stable. Altered mental status/metabolic encephalopathy Alcohol use disorder - Secondary to intentional overdose and alcohol intoxication - Urine drug screen positive for alcohol and opiates - Patient's mentation appears to already be improving - Avoid all sedating medications - [facility] protocol - Thiamine/folate/multi-vitamin daily - Monitor for any signs of withdrawal - Discussed with patient importance of alcohol cessation - Fall and seizure precautions Hypotension. Improved - Secondary to above - IVF - fall precautions Acute kidney injury - Secondary to poor oral intake/dehydration - Avoid nephrotoxic agents - IV fluid - Continue to monitor kidney function Hypokalemia - By mouth repletion ordered - A.m. labs to monitor response Right rib fracture - Patient seen in the ED 09/25/17 with right rib pain status post fall in a parking lot while intoxicated with imaging revealing right seventh posterior rib fracture - IS at bedside, encourage hourly use Hypothyroidism - Resume patient's home dose of levothyroxine 50 g daily DVT prophylaxis - Bilateral SCD/ANGELO hose Code Status Discharge patient to psychiatry Condition on discharge: Improved Regular Diet as tolerated Ad Eli activity, no driving Rx written: None Follow-up with primary care physician Discussed Condition With Patient, nursing staff This note was transcribed by jens Talavera. I, Dr. Guicho Jain personally performed the history, physical exam, and medical decision making; and confirmed the accuracy of the information in the transcribed note. Authenticated by Dr. Guicho Jain on 09/26/17 at 10:19. Jennifer Talavera Sep 26, 2017 10:16 Guicho Jain MD Sep 26, 2017 10:19
--- NOTE | 2017-09-26 10:22 | HHI.DCPOC ---
Discharge Care Plan Diagnosis: (1) Overdose Your Health Problems Are: Difficulty with ADL Exercise Tolerance Goals to Promote Your Health * To prevent worsening of your condition and complications * To maintain your health at the optimal level Directions to Meet Your Goals Take your medications as prescribed Follow your dietary instruction Follow activity as directed Keep your appointments as scheduled Take your immunizations and boosters as scheduled If your symptoms worsen call your PCP, if no PCP go to Urgent Care Center or Emergency Room Smoking is Dangerous to Your Health. Avoid second hand smoke Call the 24-hour hour crisis hotline for domestic abuse at Guicho Jain MD Sep 26, 2017 10:22
--- NOTE | 2017-09-26 13:00 | PD.PSY.CON ---
Provisional Diagnosis Admission Date Sep 26, 2017 at 06:53 [place] I. Major depressive disorder, recurrent, severe, without psychosis, anxiety, alcohol use disorder [place] II. Deferred [place] III. Hypothyroidism, hypertension [place] IV. Recent relapsed in alcohol [place] V. 40 History of Present Illness Service Psychiatry Consult Requested By ER team Reason for Consult Suicidal attempt Primary Care Physician Unknown HPI The patient is a 56-year-old woman, domiciled in a sober house [address], single, employed in [employer], with psychiatric history of depression, anxiety , alcohol use disorder, no previous psychiatric hospitalizations, no previous suicidal attempts, she is on Effexor 300 mg, BuSpar 15 mg, gabapentin 600 mg 3 times a day, this medication was prescribed by a psychiatrist in [place] , she has medical history significant for hypothyroidism, hypertension, who presented to [facility] ED with altered mental status after intentionally overdosing on gabapentin and BuSpar. Reportedly, patient took 8 600mg gabapentin and 5 15mg Buspar. Patient was also intoxicated with alcohol level of 245 and urine drug screen positive for opiates. Patient was actually seen in the ED yesterday with right-sided rib pain secondary to acute rib fracture the patient sustained when she fell in a parking lot while intoxicated. ED physician contacted poison control who did not recommend any specific follow- up. Patient's EKG was reviewed and showed normal sinus rhythm. Patient was found to be slightly hypokalemic with potassium of 3.4 as well as acute kidney injury with creatinine of 1.14. She is also hypotensive. At the time of her discharge from the ED yesterday, patient was prescribed hydrocodone which she states she never filled. The patient was seen for psychiatric evaluation. Her initial alcohol level was 245. Chart was reviewed. Case discussed with nurse in charge. No collateral information available at this moment. On psychiatric evaluation the patient reports depressed mood, she is very tearful, she seems to be in acute distress, objectively sad. He reports that after being sober for about 30 days, she relapsed for no reason about 2 days ago. He has been in a binge of alcohol for the last 2 days, drinking about 1-2 pints of Liquor per day. She was kicked out of her sober house, she felt extremely guilty, depressed, hopeless, helpless, disappointed of herself and she decided to overdose with suicidal intentions. The moment of this evaluation the patient reports "I don't deserve to live anymore". She denies homicidal ideation, she denies visual and auditory hallucinations. She is logical, coherent and relevant. Oriented 3, no fluctuation of consciousness present. No signs of intoxication or withdrawal noted at this moment. Review of Systems Constitutional: DENIES: Diaphoretic episodes, Fatigue, Fever, Weight gain, Weight loss, Chills, Dizziness, Change in appetite, Night Sweats Endocrine: DENIES: Abnorml menstrual pattern, Heat/cold intolerance, Polydipsia , Polyuria, Polyphagia Eyes: DENIES: Blurred vision, Diplopia, Eye inflammation, Eye pain, Vision loss , Photosensitivity, Double Vision Ears, nose, mouth, throat: DENIES: Tinnitus, Hearing loss, Vertigo, Nasal discharge, Oral lesions, Throat pain, Hoarseness, Ear Pain, Running Nose, Epistaxis, Sinus Pain, Toothache, Odynophagia Respiratory: DENIES: Apneas, Cough, Snoring, Wheezing, Hemoptysis, Sputum production, Shortness of breath Cardiovascular: DENIES: Chest pain, Palpitations, Syncope, Dyspnea on Exertion , PND, Lower Extremity Edema, Orthopnea, Claudication Gastrointestinal: DENIES: Abdominal pain, Black stools, Bloody stools, Constipation, Diarrhea, Nausea, Vomiting, Difficulty Swallowing, Anorexia Genitourinary: DENIES: Abnormal vaginal bleeding, Dysmenorrhea, Dyspareunia, Sexual dysfunction, Urinary frequency, Urinary incontinence, Urgency, Hematuria , Dysuria, Nocturia, Vaginal discharge Musculoskeletal: DENIES: Joint pain, Muscle aches, Stiffness, Joint Swelling, Back pain, Neck pain Integumentary: DENIES: Abnormal pigmentation, Pruritus, Rash, Nail changes, Breast masses, Breast skin changes, Nipple discharge Hematologic/lymphatic: DENIES: Bruising, Lymphadenopathy Neurologic: DENIES: Abnormal gait, Headache, Localized weakness, Paresthesias, Seizures, Speech Problems, Tremor, Poor Balance Psychiatric: COMPLAINS OF: Mood changes, Depression, Suicidal Ideation Past Family Social History Coded Allergies: No Known Allergies (Unverified , 09/25/17) Reported Medications Buspirone (Buspirone) 15 Mg Tab, 15 MG PO BID for Anxiety, TAB 0 Refills 09/25/17 Levothyroxine (Synthroid) 50 Mcg Tab, 50 MCG PO DAILY for Thyroid, TAB 0 Refills 09/25/17 Gabapentin (Gabapentin) 600 Mg Tab, 600 MG PO TID, TAB 0 Refills 09/25/17 Methocarbamol (Robaxin) 500 Mg Tab, 500 MG PO PRN for Muscle Spasm, TAB 0 Refills 09/25/17 Discontinued Scripts Hydrocodone-Acetaminophen ([place]) 5 Mg-325 Mg Tab, 1 TAB PO Q6H Y for PAIN, #15 TAB 0 Refills Prov:Osito Villeda MD 09/25/17 Ibuprofen (Ibuprofen) 600 Mg Tab, 600 MG PO Q6H Y for Pain/Inflammation, #20 TAB 0 Refills Prov:Osito Villeda MD 09/25/17 Family Psych History Patient denies family psychiatric history Social History Patient was born and raised in [place], she lives in [place] in a sober house, she is single, she works in [employer], her highest level of education is high school Patient's Strengths (min. 2) Verbal communication Physical Exam No tremors, no EPS, no withdrawal at this moment, patient seems to be psychomotor retarded. Vital Signs Vital Signs Date Time Temp Pulse Resp B/P (MAP) Pulse Ox O2 Delivery O2 Flow Rate FiO2 09/26/17 10:49 60 15 105/60 (75) 98 09/26/17 10:48 Room Air 09/26/17 06:50 2.00 09/25/17 21:19 97.8 I/O 09/26/17 09/26/17 09/27/17 08:00 16:00 00:00 Intake Total 2610 ml Balance 2610 ml Lab Results Test 09/25/17 21:38 09/25/17 22:49 White Blood Count 11.0 TH/MM3 Red Blood Count 4.60 MIL/MM3 Hemoglobin 13.5 GM/DL Hematocrit 40.6 % Mean Corpuscular Volume 88.3 FL Mean Corpuscular Hemoglobin 29.3 PG Mean Corpuscular Hemoglobin Concent 33.2 % Red Cell Distribution Width 15.7 % Platelet Count 388 TH/MM3 Mean Platelet Volume 7.4 FL Neutrophils (%) (Auto) 49.7 % Lymphocytes (%) (Auto) 42.6 % Monocytes (%) (Auto) 5.2 % Eosinophils (%) (Auto) 2.0 % Basophils (%) (Auto) 0.5 % Neutrophils # (Auto) 5.5 TH/MM3 Lymphocytes # (Auto) 4.7 TH/MM3 Monocytes # (Auto) 0.6 TH/MM3 Eosinophils # (Auto) 0.2 TH/MM3 Basophils # (Auto) 0.1 TH/MM3 CBC Comment DIFF FINAL Differential Comment Prothrombin Time 9.9 SEC Prothromb Time International Ratio 1.0 RATIO Activated Partial Thromboplast Time 24.4 SEC Blood Urea Nitrogen 11 MG/DL Creatinine 1.14 MG/DL Random Glucose 94 MG/DL Total Protein 8.3 GM/DL Albumin 3.7 GM/DL Calcium Level 8.4 MG/DL Alkaline Phosphatase 123 U/L Aspartate Amino Transf (AST/SGOT) 19 U/L Alanine Aminotransferase (ALT/SGPT) 20 U/L Total Bilirubin 0.2 MG/DL Sodium Level 136 MEQ/L Potassium Level 3.4 MEQ/L Chloride Level 102 MEQ/L Carbon Dioxide Level 25.8 MEQ/L Anion Gap 8 MEQ/L Estimat Glomerular Filtration Rate 50 ML/MIN Serum Osmolality 353 MOSM/KG Salicylates Level 2.0 MG/DL Acetaminophen Level LESS THAN 2.0 MCG/ML Ethyl Alcohol Level 245 MG/DL Urine Color LIGHT-YELLOW Urine Turbidity HAZY Urine pH 6.0 Urine Specific [place] GREATER THAN 1.050 Urine Protein TRACE mg/dL Urine Glucose (UA) NEG mg/dL Urine Ketones NEG mg/dL Urine Occult Blood NEG Urine Nitrite NEG Urine Bilirubin NEG Urine Urobilinogen LESS THAN 2.0 MG/DL Urine Leukocyte Esterase NEG Urine RBC 2 /hpf Urine WBC 7 /hpf Urine Squamous Epithelial Cells 30 /hpf Urine Bacteria RARE /hpf Urine Mucus FEW /lpf Microscopic Urinalysis Comment CULT NOT INDICATED Urine Osmolality 306 MOSM/KG Urine Opiates Screen POS Urine Barbiturates Screen NEG Urine Amphetamines Screen NEG Urine Benzodiazepines Screen NEG Urine Cocaine Screen NEG Urine Cannabinoids Screen NEG Mental Status Examination Appearance: Disheveled Consciousness: Alert Orientation: x4 Motor Activity: Abnormal gait Speech: Hesitant Language: Adequate Fund of Knowledge: Adequate Attention and Concentration: Adequate Memory: Unremarkable Affect: Irritable, Sad Thought Process & Associations: Intact Thought Content: Appropriate Hallucination Type: None Delusion Type: None Suicidal Ideation: Yes Suicidal Plan: No Suicidal Intention: No Homicidal Ideation: No Homicidal Plan: No Homicidal Intention: No Insight: Poor Judgment: Poor Assessment & Plan Problem List: (1) Major depressive disorder, recurrent ICD Codes: F33.9 - Major depressive disorder, recurrent, unspecified Assessment & Plan: On psychiatric evaluation today the patient reports acute symptomatology of depression consisting in hopelessness, helplessness, worthlessness, generalized pessimism, sense of guiltiness, suicidal ideation with a plan of overdose. Patient has history of alcoholism, she claims that she has been sober for about 30 days, but recently relapsed and she was kicked out of her sober house, which could be the source of her current depression and recent suicidal attempt. Patient has history of depression, anxiety, but she doesn't have any hospitalization or previous suicidal attempt. No collateral information available at this moment. The patient has an increased risk of danger to herself. She needs psychiatric hospitalization for stabilization. I will restart her psychotropics at a lower dose, Effexor XR 75 mg, BuSpar 50 mg twice a day, gabapentin 600 mg TID. [facility] protocol. Transfer patient to med psych unit. Keep with a sitter in the ER. Brief supportive psychotherapy provided. Assessment & Plan Estimated LOS: Shilo Valentin MD Sep 26, 2017 13:00
--- NOTE | 2017-09-26 19:28 | EKG ---
Date Performed: 09/25/2017 Time Performed: 21:34:03 PTAGE: 56 years EKG: Sinus rhythm NORMAL ECG NO PREVIOUS TRACING DOCTOR: Emilie Terrazas Interpretating Date/Time 09/26/2017 19:24:50
[2017-09-27] MEDS ORDERED: LEVOTHYROXINE SODIUM 50 MCG TAB PO SCH (06:00)
== END 2017-09-26 12:09 ==
LOC: NEPC 21:13 → NEDA 09-26 06:53
PROVIDERS: ADMIT Internal Medicine; ATTEND Internal Medicine
DX: T42.6X2A Poisoning by other antiepileptic and sedative-hypnotic drugs, intentional self-harm, initial encounter (principal); F33.9 Major depressive disorder, recurrent, unspecified; F41.9 Anxiety disorder, unspecified; S22.41XA Multiple fractures of ribs, right side, initial encounter for closed fracture; E03.9 Hypothyroidism, unspecified; F17.210 Nicotine dependence, cigarettes, uncomplicated; Z79.899 Other long term (current) drug therapy; F10.229 Alcohol dependence with intoxication, unspecified; Y90.8 Blood alcohol level of 240 mg/100 ml or more; E86.0 Dehydration; E87.6 Hypokalemia; J98.11 Atelectasis; N17.9 Acute kidney failure, unspecified; I95.9 Hypotension, unspecified; G93.41 Metabolic encephalopathy
CPT/HCPCS: 80053; 80307; 81001; 83930; 83935; 85025; 85610; 85730; 93005; 96361; 96365; 99285; G0378; J0610; J7030; J7040

== ENCOUNTER 2017-09-26 10:49 | Inpatient (IN) | payer BC, OTHER ==
[~2017-09-26 10:49] MED LIST changes: +BUSP15TA PO; -IBUP-232 PO; -NORC5TAB PO
[2017-09-26] MEDS ORDERED: MAGNESIUM HYDROXIDE SUSP 30 ML CUP PO PRN (12:45)
[2017-09-26] MEDS ORDERED: FLUMAZENIL 0.5 MG/5 ML VIAL IV PUSH PRN (12:45)
[2017-09-26] MEDS ORDERED: LORazepam 0.5 MG TAB PO PRN (12:45)
[2017-09-26] MEDS ORDERED: LORazepam 2 MG/ML VIAL IV PUSH PRN ×4 (12:45)
[2017-09-26] MEDS ORDERED: LORazepam 2 MG/ML VIAL IM PRN ×2 (12:45)
[2017-09-26] MEDS ORDERED: LORazepam 2 MG TAB PO PRN (12:45)
[2017-09-26] MEDS ORDERED: LORazepam 1 MG TAB PO PRN (12:45)
[2017-09-26] MEDS: LEVOTHYROXINE SODIUM 50 MCG TAB PO SCH (13:59)
[2017-09-26] MEDS: VENLAFAXINE HCL XR 75 MG CAP PO SCH (13:59)
[2017-09-26] MEDS: ACETAMINOPHEN 325 MG TAB PO PRN (14:07)
[2017-09-26] MEDS: GABAPENTIN 300 MG CAP PO SCH ×2 (14:07→18:00)
[2017-09-26 18:00] VITALS: BP 112/55; PULSE 64; RESP 18; TEMP 97.7; O2SAT 93
[2017-09-26] MEDS: busPIRone HCL 5 MG TAB PO SCH (20:47)
[2017-09-26] MEDS: REMOVE OLD NICODERM (NICOTINE) PATCH T-DERMAL SCH (20:57)
[2017-09-27 05:54] VITALS: BP 120/73; PULSE 58; RESP 16; TEMP 97.4; O2SAT 97
[2017-09-27] MEDS: LEVOTHYROXINE SODIUM 50 MCG TAB PO SCH (06:01)
[2017-09-27] MEDS: busPIRone HCL 5 MG TAB PO SCH ×2 (08:25→21:21)
[2017-09-27] MEDS: VENLAFAXINE HCL XR 75 MG CAP PO SCH (08:25)
[2017-09-27] MEDS: NICOTINE 21 MG/24 HR PATCH T-DERMAL SCH (08:25)
[2017-09-27] MEDS: GABAPENTIN 300 MG CAP PO SCH ×3 (08:25→17:22)
[2017-09-27] MEDS: LORazepam 1 MG TAB PO PRN ×2 (08:32→17:22)
[2017-09-27 09:12] LABS: BICARBONATE 27.7 MEQ/L (21.0-32.0); BLOOD UREA NITROGEN 12 MG/DL (7-18); CALCIUM 8.4 MG/DL (8.5-10.1); CHLORIDE 108 MEQ/L (98-107); CREATININE 0.86 MG/DL (0.50-1.00); GLOMERULAR FILTRATION RATE 69 ML/MIN (>89); GLUCOSE,RANDOM 98 MG/DL (74-106); SODIUM (NA) 141 MEQ/L (136-145)
[2017-09-27 09:13] LABS: CHOLESTEROL 222 MG/DL (120-200)
[2017-09-27 09:17] LABS: CHOLESTEROL/ HDL RATIO 3.88 RATIO; HDL CHOLESTEROL 57.2 MG/DL (40.0-60.0); LDL CHOLESTEROL 131 MG/DL (0-99); TRIGLYCERIDES 168 MG/DL (42-150)
[2017-09-27 10:54] LABS: HEMOGLOBIN A1C 5.8 % (4.3-6.0)
--- NOTE | 2017-09-27 10:59 | PD.CONS ---
HPI Service [facility] Consult Requested By Primary Care Physician Unknown Diagnoses: History of Present Illness hx from patient, review of med records and nursing staff pt came on 09/25 came to ER with etoh, intoxicated, found to have rib fx- was dc from ER then was not able to go back to her sober living home, was depressed, took an overdose with gabapentin and buspar - and called 911 , came to ER , was admitted under medical service for one day, and now transferred to psychiatry unit for suicidal attempt/ shultz act at present, pt is doing well, seen at bedside in psychiatry unit, tearful reports since rib fx, pains right rib area and was hard to breathe no other symptoms apart from the pain denies medical issues apart from low thyroid Review of Systems Except as stated in HPI: all other systems reviewed are Neg Past Family Social History Allergies: Coded Allergies: No Known Allergies (Unverified , 09/25/17) Past Medical History hypothyroidism anxiety depression sciatica Past Surgical History tubal ligation tonsilectomy Family History dm- mom alcoholism in many members Social History smokes half a pack a day lives sober living house, but now back on drinking etoh no drug abuse Physical Exam Vital Signs Vital Signs Date Time Temp Pulse Resp B/P (MAP) Pulse Ox O2 Delivery O2 Flow Rate FiO2 09/27/17 05:54 97.4 58 16 120/73 (89) 97 09/26/17 18:00 97.7 64 18 112/55 (74) 93 Physical Exam GENERAL: This is a well-nourished, well-developed patient, in no apparent distress. SKIN: No rashes, ecchymoses or lesions. Cool and dry. HEAD: Atraumatic. Normocephalic. No temporal or scalp tenderness. EYES: No scleral icterus. No injection or drainage. ENT: Nose without bleeding, purulent drainage or septal hematoma. Airway patent. NECK: Trachea midline. No JVD CARDIOVASCULAR: Regular rate and rhythm without murmurs, gallops, or rubs. RESPIRATORY: decreased air entry bilaterally GASTROINTESTINAL: Abdomen soft, non-tender, nondistended. No guarding. MUSCULOSKELETAL: Extremities without clubbing, cyanosis, or edema. No calf tenderness. NEUROLOGICAL: Awake and alert. Motor and sensory grossly within normal limits. Normal speech. Laboratory Laboratory Tests Test 09/27/17 08:26 Blood Urea Nitrogen 12 Creatinine 0.86 Random Glucose 98 Calcium Level 8.4 Sodium Level 141 Potassium Level 3.9 Chloride Level 108 Carbon Dioxide Level 27.7 Anion Gap 5 Estimat Glomerular Filtration Rate 69 Triglycerides Level 168 Cholesterol Level 222 LDL Cholesterol 131 HDL Cholesterol 57.2 Cholesterol/HDL Ratio 3.88 Result Diagram: 09/27/17 0826 Assessment and Plan Assessment and Plan Impression: rib fx pleuritic chest pain secondary to above drug overdose etoh abuse- binge drinking in past one week- watch for withdrawal Plan: incentive spirometry cxr follow up- to r/o pneumothroax watch for etoh withdrawal closely- psychiatry team has already placed ciwa orders pain control with tramadol 50m,g po q8hrs prn for pain >5 dvt prophylaxis with ambulation Discussed Condition With patient, her nurse Joe Lyman MD Sep 27, 2017 10:59
--- NOTE | 2017-09-27 11:24 | HHI.HP ---
Provisional Diagnosis Admission Date Sep 26, 2017 at 12:30 [place] I. Major depressive disorder; alcohol use disorder Certification of Person's Competence To Provide Express and Informed Consent I have personally examined Kaci Bird , a person being served at [facility] on, Sep 27, 2017 11:13. Express and informed consent means consent voluntarily given in writing, by a competent person, after sufficient explanation and disclosure of the subject matter involved to enable the person to make a knowing and willful decision without any element of force, fraud, deceit, duress, or other form of constraint or coercion. This person is 18 years of age or older, is not now known to be incompetent to consent to treatment with a guardian advocate, and does not have a health care surrogate or proxy currently making medical treatment decisions. I have found this person to be one of the following: [x] Competent to provide express and informed consent, as defined above, for voluntary admission to this facility and is competent to provide express and informed consent for treatment. He/she has the consistent capacity to make well reasoned, willful, and knowing decisions concerning his or her medical or mental health treatment. The person fully and consistently understands the purpose of the admission for examination/placement and is fully capable of personally exercising all rights assured [place] Incompetent to provide express and informed consent to voluntary admission, and this is incompetent to provide express and informed consent to treatment. The person must be transferred to involuntary status and a petition for a guardian advocate filed with the Circuit Court. [] Refusing to provide express and informed consent to voluntary admission but is competent to provide express and informed consent for treatment. The person must be discharged or transferred to involuntary status. Form shall be completed within 24 hours of a person's arrival at the receiving facility and filed in the clinical record of each person: 1. Admitted on a voluntary basis 2. Permitted to provide express and informed consent to his/her own treatment 3. Allowed to transfer from involuntary to voluntary status 4. Prior to permitting a person to consent to his or her own treatment after having been previously found incompetent to consent to treatment. History of Present Illness Capacity: Has Capacity HPI The patient is a 56-year-old woman, domiciled in a sober [place] [address], single, employed in [employer], with psychiatric history of depression, anxiety , alcohol use disorder, no previous psychiatric hospitalizations, no previous suicidal attempts, she is on Effexor 300 mg, BuSpar 15 mg, gabapentin 600 mg 3 times a day, this medication was prescribed by a psychiatrist in [place] , she has medical history significant for hypothyroidism, hypertension, who presented to [facility] ED with altered mental status after intentionally overdosing on gabapentin and BuSpar which after medical stabilization was transferred to the inpatient psychiatry unit under Mendoza act for suicide attempt via overdose. Patient was seen through psychiatry consult while the medical floor was noted to be depressed, tearful and sad as well as stating that she did not deserve to live anymore. Patient was found lying in hospital bed, cooperative. Patient's was noted to be tearful stating that she is in pain secondary to her recent rib fractures from a fall she suffered prior to her admission. Patient states that she had been drinking for past 5 days before coming to the hospital and prior to that had been drinking daily for about 5 years about 1-2 pints of vodka. She mentions that she had been sober for about 6 months then relapsed and then again began to be sore for the past 30 days prior to his recent episode. Patient mentions for the past 3 days she was living in a sober house called [address] but was recently kicked out due to her recent relapse. Patient states that she had began drinking had fallen and hurt her ribs and was caught in the sober house where she was kicked out and put in a hotel that night. Patient states that the patient continues to drink and he'll return back to the sober house the next day and so they're all her belongings were packed up and was able to return at which point she felt more depressed and had gone to the convenience store which she then overdosed on handful of pills along with continued to drink beer which she then called EMS. Patient states that she does not want to but couldn't take the pain anymore. Patient states that this time she feels "ashamed", continues to report feeling depressed due to her recent circumstances but continue to be motivated to obtain sobriety. Denies any perceptual disturbances, SI or HI or delusions at this time. Past psychiatric history: Previous psychiatric history of depression, alcohol use disorder, no prior psychiatric admissions was previous suicide attempts or self-injurious behavior. Past medical history: Hypertension and hypothyroidism Allergies: NKDA Substance use history: Alcohol use as stated in history of present illness, denies of any other substances. Social history: Patient domiciled sober living home previously currently homeless, , employed at [employer]. Patient 's name is Jona Hurtado ( no number provided). Past Psych History Violence risk - others (6 mos) Low Violence risk - self (6 mos) Elevated due to recent suicide attempt Substance Abuse History Drugs/Alcohol past 12 months Alcohol use as stated in history of present illness, denies of any other substances. Past Family Social History Coded Allergies: No Known Allergies (Unverified , 09/25/17) Reported Medications Buspirone (Buspirone) 15 Mg Tab, 15 MG PO BID for Anxiety, TAB 0 Refills 09/25/17 Levothyroxine (Synthroid) 50 Mcg Tab, 50 MCG PO DAILY for Thyroid, TAB 0 Refills 09/25/17 Gabapentin (Gabapentin) 600 Mg Tab, 600 MG PO TID, TAB 0 Refills 09/25/17 Methocarbamol (Robaxin) 500 Mg Tab, 500 MG PO PRN for Muscle Spasm, TAB 0 Refills 09/25/17 Discontinued Scripts Hydrocodone-Acetaminophen (Limestone) 5 Mg-325 Mg Tab, 1 TAB PO Q6H Y for PAIN, #15 TAB 0 Refills Prov:Osito Villeda MD 09/25/17 Ibuprofen (Ibuprofen) 600 Mg Tab, 600 MG PO Q6H Y for Pain/Inflammation, #20 TAB 0 Refills Prov:Osito Villeda MD 09/25/17 Current Medications Medications (Trade) Dose Ordered Sig/Jonelle Route Start Time Stop Time Status Last Admin (Buspar) 15 mg BID PO 09/26/17 21:00 09/27/17 08:25 (Neurontin) 600 mg TID PO 09/26/17 13:00 09/27/17 08:25 (Synthroid) 50 mcg DAILY@0600 PO 09/26/17 14:00 09/27/17 06:01 (Effexor Xr) 75 mg DAILY PO 09/26/17 14:00 09/27/17 08:25 (Ativan) 1 mg Q6H PRN PO 09/26/17 12:45 09/27/17 08:32 (Ativan Inj) 1 mg Q6H PRN IM 09/26/17 12:45 09/26/17 20:53 (Tylenol) 650 mg Q4H PRN PO 09/26/17 12:45 09/26/17 14:07 (Milk Of Magnesia Liq) 30 ml DAILY PRN PO 09/26/17 12:45 (Mag-Al Plus Susp Liq) 30 ml Q6H PRN PO 09/26/17 12:45 (Habitrol 21 Mg Patch.24 Hr) 1 patch DAILY T-DERMAL 09/27/17 09:00 (Romazicon Inj) 0.2 mg Q1M PRN IV PUSH 09/26/17 12:45 (Ativan) 1 mg Q4H PRN PO 09/26/17 12:45 (Ativan Inj) 1 mg Q4H PRN IV PUSH 09/26/17 12:45 (Ativan) 2 mg Q2H PRN PO 09/26/17 12:45 (Ativan Inj) 2 mg Q2H PRN IV PUSH 09/26/17 12:45 (Ativan Inj) 2 mg Q1H PRN IV PUSH 09/26/17 12:45 (Ativan Inj) 2 mg Q15M PRN IV PUSH 09/26/17 12:45 Miscellaneous Information 1 HS T-DERMAL 09/26/17 21:00 (Ultram) 50 mg Q8H PRN PO 09/27/17 11:15 UNV Social History Patient domiciled sober living home previously currently homeless, , employed at [employer]. Patient 's name is Jona Hurtado (no number provided) . Patient's Strengths (min. 2) Verbal and communicative Physical Exam Patient noted to be in acute pain secondary to the rib fractures, no gross motor abnormalities, no tremors or EPS, no noted psychomotor retardation or agitation Vital Signs Vital Signs Date Time Temp Pulse Resp B/P (MAP) Pulse Ox O2 Delivery O2 Flow Rate FiO2 09/27/17 05:54 97.4 58 16 120/73 (89) 97 I/O 09/27/17 09/27/17 09/28/17 08:00 16:00 00:00 Intake Total 0 ml 0 ml Balance 0 ml 0 ml Lab Results labs reviewed Test 09/27/17 08:26 Blood Urea Nitrogen 12 MG/DL Creatinine 0.86 MG/DL Random Glucose 98 MG/DL Calcium Level 8.4 MG/DL Sodium Level 141 MEQ/L Potassium Level 3.9 MEQ/L Chloride Level 108 MEQ/L Carbon Dioxide Level 27.7 MEQ/L Anion Gap 5 MEQ/L Estimat Glomerular Filtration Rate 69 ML/MIN Triglycerides Level 168 MG/DL Cholesterol Level 222 MG/DL LDL Cholesterol 131 MG/DL HDL Cholesterol 57.2 MG/DL Cholesterol/HDL Ratio 3.88 RATIO Mental Status Examination Appearance: Disheveled Consciousness: Alert Orientation: Person, Place, Date/Time Speech: Unremarkable Language: Adequate Fund of Knowledge: Inadequate Attention and Concentration: Adequate Memory: Unremarkable Mood: Sad, Anxious Affect: Sad, Other (tearful) Thought Process & Associations: Intact, Logical, Linear Thought Content: Appropriate Hallucination Type: None Delusion Type: None Suicidal Ideation: Yes Suicidal Plan: No Suicidal Intention: No Homicidal Ideation: No Homicidal Plan: No Homicidal Intention: No Insight: Fair Judgment: Impulsive Assessment & Plan Problem List: (1) Major depressive disorder, recurrent ICD Codes: F33.9 - Major depressive disorder, recurrent, unspecified (2) Alcohol use disorder ICD Codes: F10.99 - Alcohol use, unspecified with unspecified alcohol-induced disorder Assessment & Plan Patient is 56-year-old woman who carries a diagnosis of depression, alcohol use disorder, no previous psychiatric admissions or suicide attempts with this time 30 depressive symptoms along with recent suicide ideations and recent suicide attempt via overdose. We'll continue patient on Effexor XR 75 g by mouth daily, BuSpar 50 mg by mouth twice a day and gabapentin 600 mg 3 times a day. Continue CIWA protocol. Withdrawal precautions. Continue recommendations from primary medical team. We'll add trazodone 100 mg by mouth at bedtime to assist with sleep disturbance. Discharge planning in progress. Discharge Planning To be determined Sree Jameson MD Sep 27, 2017 11:24
[2017-09-27] MEDS: traMADol HCL 50 MG TAB PO PRN ×2 (12:14→21:21)
--- NOTE | 2017-09-27 14:02 | RADRPT ---
EXAM DATE/TIME: 09/27/2017 13:03 [place] COMPARISON: No previous studies available for comparison. INDICATIONS : Short of breath. MEDICAL HISTORY : None. SURGICAL HISTORY : Tubal ligation. ENCOUNTER: Subsequent ACUITY: 3 days PAIN SCORE: 0/10 LOCATION: chest FINDINGS: PA and lateral views of the chest demonstrate the lungs to be symmetrically aerated without evidence of mass, infiltrate or effusion. The cardiomediastinal contours are unremarkable. Osseous structure s are intact. CONCLUSION: 1. Minimal basilar atelectasis or scarring. No effusion or pneumothorax. Daniel Jimenez MD on September 27, 2017 at 13:58 Board Certified Radiologist. This report was verified electronically.
[2017-09-27 18:14] VITALS: BP_SYST 120; BP_SYST 149; BP_DIAS 73; BP_DIAS 89; PULSE 58; PULSE 76; RESP 16; RESP 17; TEMP 97.4; TEMP 97.8; O2SAT 96; O2SAT 97
[2017-09-27] MEDS: REMOVE OLD NICODERM (NICOTINE) PATCH T-DERMAL SCH (21:00)
[2017-09-27] MEDS ORDERED: traZODone HCL 100 MG TAB PO SCH (21:00)
[2017-09-28] MEDS: LEVOTHYROXINE SODIUM 50 MCG TAB PO SCH (05:49)
[2017-09-28 06:04] VITALS: BP 98/56; PULSE 67; RESP 16; TEMP 97.7; O2SAT 95
[2017-09-28] MEDS: busPIRone HCL 5 MG TAB PO SCH ×2 (08:36→20:52)
[2017-09-28] MEDS: VENLAFAXINE HCL XR 75 MG CAP PO SCH (08:36)
[2017-09-28] MEDS: NICOTINE 21 MG/24 HR PATCH T-DERMAL SCH (08:37)
[2017-09-28] MEDS: GABAPENTIN 300 MG CAP PO SCH ×3 (08:37→17:39)
--- NOTE | 2017-09-28 11:30 | HHI.PR ---
Subjective Remarks has been doing incentive spirometry properly sated it acutally makes her feel better cxr personally reviewed no issues overnight Objective Vitals Vital Signs Date Time Temp Pulse Resp B/P (MAP) Pulse Ox O2 Delivery O2 Flow Rate FiO2 09/28/17 06:04 97.7 67 16 98/56 (70) 95 09/27/17 22:21 18 09/27/17 18:14 97.8 76 17 149/89 (109) 96 I/O 09/27/17 09/27/17 09/27/17 09/28/17 09/28/17 09/28/17 07:00 15:00 23:00 07:00 15:00 23:00 Intake Total 480 ml 480 ml 240 ml 120 ml 0 ml Output Total 1 ml Balance 480 ml 480 ml 240 ml 119 ml 0 ml Intake Oral 480 ml 480 ml 240 ml 120 ml 0 ml Output Urine Total 1 ml # Voids 3 2 0 # Bowel Movements 0 Result Diagram: 09/27/17 0826 Objective Remarks awake, alert, pleasant lady, not in distress, has pillow on her right chest by rib area stated pain is much improved heart rate is regular, no murmur appreciated lung sounds are equal bilaterally, good air entry abdomen is soft, non tender, no rebound, no guarding extremities no calf asymmetry or edema, non tender neuro: awake, alert, no focal deficit A/P Assessment and Plan Impression: suicidal attempt with drug overdose rib fx - right side pain secondary to rib fx hypothyroidism Plan: pain is better controlled cxr did not reveal any penumothorax pt is very compliant with incentive spirometry - stated in fact it improves her pain she is worried regarding her thyroid as she was not taking meds for a week, advised her that she is back on her regular dose, and she should repeat levels in 6 weeks to see if adjustment is needed. dvt prophylaxis with ambulation. will sign off medically stable to be transferred to regular psychiatry floor Discharge Planning patient, nursing staff Joe Lyman MD Sep 28, 2017 11:30
[2017-09-28] MEDS: LORazepam 1 MG TAB PO PRN ×2 (12:18→23:01)
[2017-09-28] MEDS: traMADol HCL 50 MG TAB PO PRN ×2 (12:18→20:53)
--- NOTE | 2017-09-28 17:09 | HHI.PYPN ---
Subjective Remarks Patient seen for follow-up, chart reviewed. Discussion she staff reported that patient slept well has been eating and with improvement in pain. Patient was found lying in hospital bed to be calm and cooperative but continues to be tearful. Patient states that she has been feeling "okay" but has been having some difficulty with sleep due to the pain. Patient reports her mood has been "so-so" but continues to feel depressed state that is slightly worse than yesterday. Patient states that she is taking about where she will go postdischarge as she would like to return back to her sober living facility to continue to try to attain sobriety from her alcohol use. Patient reports eating well, no problems with bowel movement. Patient continues to have vague suicidal ideations. Review of Systems Except as stated in HPI: all other systems reviewed are Neg Mental Status Examination Appearance: Disheveled Consciousness: Alert Orientation: Person, Place, Date/Time Speech: Unremarkable Language: Adequate Fund of Knowledge: Inadequate Attention and Concentration: Adequate Memory: Unremarkable Mood: Sad, Anxious Affect: Sad, Other (tearful) Thought Process & Associations: Intact, Logical, Linear Thought Content: Appropriate Hallucination Type: None Delusion Type: None Suicidal Ideation: Yes Suicidal Plan: No Suicidal Intention: No Homicidal Ideation: No Homicidal Plan: No Homicidal Intention: No Insight: Fair Judgment: Impulsive Results Vitals/IOs Vital Signs Date Time Temp Pulse Resp B/P (MAP) Pulse Ox O2 Delivery O2 Flow Rate FiO2 09/28/17 06:04 97.7 67 16 98/56 (70) 95 Intake and Output 09/28/17 09/28/17 09/29/17 08:00 16:00 00:00 Intake Total 120 ml 240 ml Output Total 1 ml Balance 119 ml 240 ml Assessment & Plan Problem List: (1) Major depressive disorder, recurrent ICD Codes: F33.9 - Major depressive disorder, recurrent, unspecified (2) Alcohol use disorder ICD Codes: F10.99 - Alcohol use, unspecified with unspecified alcohol-induced disorder Assessment & Plan Patient continues to report depressed mood along with a suicide ideations. We will increase venlafaxine 150 mg by mouth daily for depression, we'll increase trazodone to 150 mg by mouth at bedtime for insomnia, continue with recommendations as per primary medical team. Discharge planning in progress. Justification for Cont. Inpt. At risk for further decompensation if at lower level of care Discharge Planning To be determined Sree Jameson MD Sep 28, 2017 17:09
[2017-09-28 18:22] VITALS: BP 104/55; PULSE 62; RESP 18; TEMP 98.1; O2SAT 93
[2017-09-28] MEDS: REMOVE OLD NICODERM (NICOTINE) PATCH T-DERMAL SCH (20:55)
[2017-09-28] MEDS ORDERED: traZODone HCL 50 MG TAB PO SCH (21:00)
[2017-09-29] MEDS: LEVOTHYROXINE SODIUM 50 MCG TAB PO SCH (05:43)
[2017-09-29 06:07] VITALS: BP 90/53; PULSE 60; RESP 16; TEMP 98.6; O2SAT 95
[2017-09-29] MEDS: traMADol HCL 50 MG TAB PO PRN ×3 (08:36→23:12)
[2017-09-29] MEDS: VENLAFAXINE HCL XR 75 MG CAP PO SCH (08:37)
[2017-09-29] MEDS: GABAPENTIN 300 MG CAP PO SCH ×3 (08:37→17:59)
[2017-09-29] MEDS: NICOTINE 21 MG/24 HR PATCH T-DERMAL SCH (08:38)
[2017-09-29] MEDS: busPIRone HCL 5 MG TAB PO SCH (08:38)
[2017-09-29] MEDS ORDERED: busPIRone HCL 10 MG TAB PO SCH (09:00)
[2017-09-29] MEDS ORDERED: ZOLPIDEM TARTRATE 5 MG TAB PO PRN (09:00)
[2017-09-29] MEDS ORDERED: busPIRone HCL 5 MG TAB PO ONE (09:45)
[2017-09-29] MEDS: ALUMINUM/MAGNESIUM/SIMETH 30 ML CUP PO PRN (11:47)
--- NOTE | 2017-09-29 14:23 | HHI.PYPN ---
Subjective Remarks Patient seen for follow-up, chart reviewed. Discussion was had reported patient continued to feel depressed, denying suicidal ideation continues report feeling guilty due to recent relapse and reported having difficulty with sleep; patient continues with low CIWA scores. Patient is found lying in hospital bed noted to be tearful stated that she has some difficulty sleeping last evening but her mood has been "better" and stating be more hopeful and more optimistic. Patient denies any suicide ideations continues to report feeling depressed with less crying spells. Patient denies any perceptual disturbances or delusions. Review of Systems Except as stated in HPI: all other systems reviewed are Neg Mental Status Examination Appearance: Disheveled Consciousness: Alert Orientation: Person, Place, Date/Time Speech: Unremarkable Language: Adequate Fund of Knowledge: Inadequate Attention and Concentration: Adequate Memory: Unremarkable Mood: Sad, Anxious Affect: Sad Thought Process & Associations: Intact, Logical, Linear Thought Content: Appropriate Hallucination Type: None Delusion Type: None Suicidal Ideation: Yes (denies today) Suicidal Plan: No Suicidal Intention: No Homicidal Ideation: No Homicidal Plan: No Homicidal Intention: No Insight: Fair Judgment: Impulsive Results Vitals/IOs Vital Signs Date Time Temp Pulse Resp B/P (MAP) Pulse Ox O2 Delivery O2 Flow Rate FiO2 09/29/17 06:07 98.6 60 16 90/53 (65) 95 Intake and Output 09/29/17 09/29/17 09/30/17 08:00 16:00 00:00 Intake Total 240 ml Balance 240 ml Assessment & Plan Problem List: (1) Major depressive disorder, recurrent ICD Codes: F33.9 - Major depressive disorder, recurrent, unspecified (2) Alcohol use disorder ICD Codes: F10.99 - Alcohol use, unspecified with unspecified alcohol-induced disorder Assessment & Plan Patient at this time continue to support feeling depressed but it is less tearful during interview and states being more hopeful denying any suicide ideations at this time. We'll increase BuSpar to 20 mg by mouth twice a day and add zolpidem 5 mg daily at bedtime when necessary insomnia. Continuous of medications. Continue to monitor mood and behavior. Counselor/therapist counseled patient on plan to connect with a sober living facility postdischarge. Discharge planning in progress Justification for Cont. Inpt. At risk for further decompensation if at lower level of care Discharge Planning To be determined Sree Jameson MD Sep 29, 2017 14:23
--- NOTE | 2017-09-29 14:53 | PD.TTN ---
Patient Problems 1. Discharge planning 2. Medication compliance 3. Knowledge deficit 4. Lack of coping skills Progress Toward Goals Provider Present: Dr. Zeb Jameson Provider Input: 09/28 patient has recently relapsed and cannot go back to her sober living home, she is getting her medications adjusted Psychiatric Counselors Present: Rob Rodriguez Jr., [facility] Psych Therapist Input: 09/28 counselor is off today but will work to assist with other discharge options Group Spec/RT/OT/ONEIL Present: Alfredito Vincent OT Group Spec/RT/OT/ONEIL Input: 09/28 patient is new - she has not come out the room yet Jesica Whitten LCSW Sep 29, 2017 14:53
[2017-09-29] MEDS: LORazepam 1 MG TAB PO PRN ×2 (15:49→23:53)
[2017-09-29 18:58] VITALS: BP 97/61; PULSE 65; RESP 16; TEMP 98.6; O2SAT 93
[2017-09-29] MEDS: ACETAMINOPHEN 325 MG TAB PO PRN ×2 (20:18→23:13)
[2017-09-29] MEDS: busPIRone HCL 10 MG TAB PO SCH (20:18)
[2017-09-29] MEDS: REMOVE OLD NICODERM (NICOTINE) PATCH T-DERMAL SCH (20:20)
[2017-09-30] MEDS: LEVOTHYROXINE SODIUM 50 MCG TAB PO SCH (05:39)
[2017-09-30] MEDS: LORazepam 1 MG TAB PO PRN ×2 (05:39→23:19)
[2017-09-30 06:10] VITALS: BP 108/60; PULSE 67; RESP 16; TEMP 97.9; O2SAT 98
--- NOTE | 2017-09-30 08:17 | HHI.PYPN ---
Subjective Remarks Patient seen for follow-up, chart reviewed. Discussion she staff reported the patient continues to be noted to be depressed but denying any suicidality patient was also noted to be continuously anxious with disturbed sleep last evening. Patient was found lying in hospital bed noted be tearful today stating that she has some difficulty with her sleep last evening due to having ruminating thoughts of where she would go after discharge in regards to wanting to go into sober living facility. Patient states that she was advised by the counselor yesterday to call [address] her previous sober living facility and was told that her bed was given up to someone else and no availability at this time. Patient states that she will try to call several other facilities today in hopes of finding a bed soon. Patient also reports feeling upset that she has not heard from her or her daughter since admission. Patient denies SI at this time. Review of Systems Except as stated in HPI: all other systems reviewed are Neg Mental Status Examination Appearance: Disheveled Consciousness: Alert Orientation: Person, Place, Date/Time Speech: Unremarkable Language: Adequate Fund of Knowledge: Inadequate Attention and Concentration: Adequate Memory: Unremarkable Mood: Sad, Anxious Affect: Sad, Other (tearful) Thought Process & Associations: Intact, Logical, Linear Thought Content: Appropriate Hallucination Type: None Delusion Type: None Suicidal Ideation: Yes (denies today) Suicidal Plan: No Suicidal Intention: No Homicidal Ideation: No Homicidal Plan: No Homicidal Intention: No Insight: Fair Judgment: Impulsive Results Vitals/IOs Vital Signs Date Time Temp Pulse Resp B/P (MAP) Pulse Ox O2 Delivery O2 Flow Rate FiO2 09/30/17 06:10 97.9 67 16 108/60 (76) 98 Intake and Output 09/30/17 09/30/17 10/01/17 08:00 16:00 00:00 Intake Total 240 ml Balance 240 ml Assessment & Plan Problem List: (1) Major depressive disorder, recurrent ICD Codes: F33.9 - Major depressive disorder, recurrent, unspecified (2) Alcohol use disorder ICD Codes: F10.99 - Alcohol use, unspecified with unspecified alcohol-induced disorder Assessment & Plan Patient at this time continues report feeling depressed along with poor sleep and anxiety due to uncertainty of her living situation postdischarge. We'll increase venlafaxine to 150 mg a.m. and Synthroid 5 mg p.m. for depression. We' ll change zolpidem to scheduled 5 mg by mouth at bedtime for insomnia. Continue aggressive medications. Patient to call carries facilities to attain placement postdischarge. Continue requisitions per primary medical team. Patient encouraged to be out of bed more participating in groups and activities. Discharge planning in progress Justification for Cont. Inpt. At risk for further decompensation if at lower level of care Discharge Planning To be determined Sree Jameson MD Sep 30, 2017 08:17
[2017-09-30] MEDS: NICOTINE 21 MG/24 HR PATCH T-DERMAL SCH (09:00)
[2017-09-30] MEDS: VENLAFAXINE HCL XR 75 MG CAP PO SCH ×2 (09:32→17:11)
[2017-09-30] MEDS: GABAPENTIN 300 MG CAP PO SCH ×3 (09:33→17:11)
[2017-09-30] MEDS: busPIRone HCL 10 MG TAB PO SCH ×2 (09:33→20:56)
[2017-09-30] MEDS: traMADol HCL 50 MG TAB PO PRN ×2 (09:35→17:12)
[2017-09-30 18:38] VITALS: BP 102/66; PULSE 64; RESP 18; TEMP 98; O2SAT 97
[2017-09-30] MEDS: ZOLPIDEM TARTRATE 5 MG TAB PO SCH (20:57)
[2017-09-30] MEDS: REMOVE OLD NICODERM (NICOTINE) PATCH T-DERMAL SCH (21:00)
[2017-10-01] MEDS: traMADol HCL 50 MG TAB PO PRN ×3 (01:18→21:45)
[2017-10-01 05:56] VITALS: BP 95/50; PULSE 60; RESP 15; TEMP 97.8; O2SAT 94
[2017-10-01] MEDS: LEVOTHYROXINE SODIUM 50 MCG TAB PO SCH (06:00)
[2017-10-01] MEDS: busPIRone HCL 10 MG TAB PO SCH ×2 (08:34→20:21)
[2017-10-01] MEDS: VENLAFAXINE HCL XR 75 MG CAP PO SCH ×2 (08:34→16:08)
[2017-10-01] MEDS: GABAPENTIN 300 MG CAP PO SCH ×3 (08:34→17:53)
[2017-10-01] MEDS: ALUMINUM/MAGNESIUM/SIMETH 30 ML CUP PO PRN (08:35)
[2017-10-01] MEDS: NICOTINE 21 MG/24 HR PATCH T-DERMAL SCH (08:37)
--- NOTE | 2017-10-01 08:37 | HHI.PYPN ---
Subjective Remarks Patient seen in room with nurse Octavia, chart reviewed, patient compliant medication. Patient laying quietly in bed complains of some mild nausea. She still remains depressed but now denies suicidality. Denies voices or visions. She is aware of her need to give into a sober living facility. Is working on that the counselors. For now continue treatment Review of Systems Except as stated in HPI: all other systems reviewed are Neg Mental Status Examination Appearance: Disheveled Consciousness: Alert Orientation: Person, Place, Date/Time Speech: Unremarkable Language: Adequate Fund of Knowledge: Inadequate Attention and Concentration: Adequate Memory: Unremarkable Mood: Sad, Anxious Affect: Sad, Other (tearful) Thought Process & Associations: Intact, Logical, Linear Thought Content: Appropriate Hallucination Type: None Delusion Type: None Suicidal Ideation: Yes (denies today) Suicidal Plan: No Suicidal Intention: No Homicidal Ideation: No Homicidal Plan: No Homicidal Intention: No Insight: Fair Judgment: Impulsive Results Vitals/IOs Vital Signs Date Time Temp Pulse Resp B/P (MAP) Pulse Ox O2 Delivery O2 Flow Rate FiO2 10/01/17 05:56 97.8 60 15 95/50 (65) 94 Intake and Output 10/01/17 10/01/17 10/02/17 08:00 16:00 00:00 Intake Total 240 ml Balance 240 ml Assessment & Plan Problem List: (1) Major depressive disorder, recurrent ICD Codes: F33.9 - Major depressive disorder, recurrent, unspecified (2) Alcohol use disorder ICD Codes: F10.99 - Alcohol use, unspecified with unspecified alcohol-induced disorder Assessment & Plan Estimated LOS: days patient continues depressed but appears to be improving, now denies suicidality. Compliant medications. Staff continues to assist patient and trying to find sober living facility Justification for Cont. Inpt. At this time patient will decompensate if placed in a lower level of care Discharge Planning Patient staff continue to work on finding sober living arrangement Problem Qualifiers (1) Major depressive disorder, recurrent: Qualified Codes: F33.2 - Major depressive disorder, recurrent severe without psychotic features Kirill Maldonado MD Oct 01, 2017 08:37
[2017-10-01] MEDS: LORazepam 1 MG TAB PO PRN ×2 (13:35→21:44)
[2017-10-01 18:45] VITALS: BP 106/58; PULSE 71; RESP 16; TEMP 98; O2SAT 94
[2017-10-01] MEDS: REMOVE OLD NICODERM (NICOTINE) PATCH T-DERMAL SCH (20:21)
[2017-10-01] MEDS: ZOLPIDEM TARTRATE 5 MG TAB PO SCH (20:21)
[2017-10-02] MEDS: LEVOTHYROXINE SODIUM 50 MCG TAB PO SCH (05:44)
[2017-10-02 06:22] VITALS: BP 112/63; PULSE 62; RESP 17; TEMP 97.6; O2SAT 97
--- NOTE | 2017-10-02 08:05 | HHI.PYPN ---
Subjective Remarks Patient seen in her room with floor staff, staff states patient had quiet night. Patient does not complain so much about nausea this a.m. States she slept fairly well. Compliant medications. Review of Systems Except as stated in HPI: all other systems reviewed are Neg Mental Status Examination Appearance: Disheveled Consciousness: Alert Orientation: Person, Place, Date/Time Speech: Unremarkable Language: Adequate Fund of Knowledge: Inadequate Attention and Concentration: Adequate Memory: Unremarkable Mood: Sad, Anxious Affect: Sad, Other (tearful) Thought Process & Associations: Intact, Logical, Linear Thought Content: Appropriate Hallucination Type: None Delusion Type: None Suicidal Ideation: Yes (denies today) Suicidal Plan: No Suicidal Intention: No Homicidal Ideation: No Homicidal Plan: No Homicidal Intention: No Insight: Fair Judgment: Impulsive Results Vitals/IOs Vital Signs Date Time Temp Pulse Resp B/P (MAP) Pulse Ox O2 Delivery O2 Flow Rate FiO2 10/02/17 06:22 97.6 62 17 112/63 (79) 97 Intake and Output 10/02/17 10/02/17 10/03/17 08:00 16:00 00:00 Intake Total 120 ml Balance 120 ml Assessment & Plan Problem List: (1) Major depressive disorder, recurrent ICD Codes: F33.9 - Major depressive disorder, recurrent, unspecified (2) Alcohol use disorder ICD Codes: F10.99 - Alcohol use, unspecified with unspecified alcohol-induced disorder Assessment & Plan Estimated LOS: days patient had good night slept all patient calm with me this morning, though continues vaguely somatic. For now continue treatment Justification for Cont. Inpt. At this time patient will decompensate if placed on the lower level of care Discharge Planning To be determined Problem Qualifiers (1) Major depressive disorder, recurrent: Qualified Codes: F33.2 - Major depressive disorder, recurrent severe without psychotic features Kriill Maldonado MD Oct 02, 2017 08:05
[2017-10-02] MEDS: busPIRone HCL 10 MG TAB PO SCH ×2 (08:23→20:59)
[2017-10-02] MEDS: NICOTINE 21 MG/24 HR PATCH T-DERMAL SCH (08:23)
[2017-10-02] MEDS: GABAPENTIN 300 MG CAP PO SCH ×3 (08:23→17:30)
[2017-10-02] MEDS: VENLAFAXINE HCL XR 75 MG CAP PO SCH ×2 (08:23→15:43)
[2017-10-02] MEDS: traMADol HCL 50 MG TAB PO PRN ×2 (12:34→21:01)
[2017-10-02] MEDS: LORazepam 1 MG TAB PO PRN (15:43)
[2017-10-02 16:13] VITALS: BP 103/66; PULSE 61; RESP 17; TEMP 97.8; O2SAT 97
[2017-10-02] MEDS: ZOLPIDEM TARTRATE 5 MG TAB PO SCH (21:00)
[2017-10-02] MEDS: REMOVE OLD NICODERM (NICOTINE) PATCH T-DERMAL SCH (21:00)
[2017-10-03 06:00] VITALS: BP 102/66; PULSE 59; RESP 16; TEMP 97.5; O2SAT 94
[2017-10-03] MEDS: LEVOTHYROXINE SODIUM 50 MCG TAB PO SCH (06:23)
[2017-10-03] MEDS: traMADol HCL 50 MG TAB PO PRN ×3 (06:24→21:13)
[2017-10-03] MEDS: GABAPENTIN 300 MG CAP PO SCH ×3 (08:43→17:58)
[2017-10-03] MEDS: VENLAFAXINE HCL XR 75 MG CAP PO SCH ×2 (08:43→16:00)
[2017-10-03] MEDS: NICOTINE 21 MG/24 HR PATCH T-DERMAL SCH (08:43)
[2017-10-03] MEDS: busPIRone HCL 10 MG TAB PO SCH ×2 (08:43→20:58)
[2017-10-03] MEDS: LORazepam 1 MG TAB PO PRN (13:28)
--- NOTE | 2017-10-03 17:25 | PD.TTN ---
Patient Problems 1. Discharge planning 2. Medication compliance 3. Knowledge deficit 4. Lack of coping skills Progress Toward Goals Provider Present: Dr. Zeb Jameson Provider Input: 09/28 patient has recently relapsed and cannot go back to her sober living home, she is getting her medications adjusted 10/03 pt meets criteria. Pt will discharge 10/04/17 Psychiatric Counselors Present: Rob Rodriguez Jr., [facility] Psych Therapist Input: 09/28 counselor is off today but will work to assist with other discharge options 10/03 Pt will be placed at [facility] Spec/RT/OT/ONEIL Present: Alfredito Vincent, OT Group Spec/RT/OT/ONEIL Input: 09/28 patient is new - she has not come out the room yet 10/03 pt will not interact with and does not leave her room Rob Rodriguez Jr, [employer] Oct 03, 2017 17:25
--- NOTE | 2017-10-03 17:32 | HHI.PYPN ---
Subjective Remarks Patient seen for follow-up, chart reviewed. Discussion she staff reported the patient continues to want to go to sober living continues to report feeling distressed about possibly being homeless. Patient was found lying in hospital bed noted be somewhat tearful during interview stating that she had attempted to reach out to different sober living facilities and was told that she had dated to come up with some amount of money to be able to be accepted for intake but that she had a bed available to her. Patient states she has never been homeless before in the past cosigned difficulty finding findings to be able to go into this facility. Patient continues report feeling depressed but denies any suicidal ideations. Patient also reported feeling down because she has not been in contact with her or children that she states "they're mad at me and don't want to talk to me at this time". Patient denies any SI, HI, AVH or delusions at this time. Review of Systems Except as stated in HPI: all other systems reviewed are Neg Mental Status Examination Appearance: Appropriate Consciousness: Alert Orientation: Person, Place, Date/Time Speech: Unremarkable Language: Adequate Fund of Knowledge: Inadequate Attention and Concentration: Adequate Memory: Unremarkable Mood: Sad, Anxious Affect: Sad, Other (tearful) Thought Process & Associations: Intact, Logical, Linear Thought Content: Appropriate Hallucination Type: None Delusion Type: None Suicidal Ideation: No Suicidal Plan: No Suicidal Intention: No Homicidal Ideation: No Homicidal Plan: No Homicidal Intention: No Insight: Fair Judgment: Impulsive Results Vitals/IOs Vital Signs Date Time Temp Pulse Resp B/P (MAP) Pulse Ox O2 Delivery O2 Flow Rate FiO2 10/03/17 07:27 18 10/03/17 06:00 97.5 59 102/66 (78) 94 Intake and Output 10/03/17 10/03/17 10/04/17 08:00 16:00 00:00 Intake Total 240 ml 960 ml 360 ml Balance 240 ml 960 ml 360 ml Assessment & Plan Problem List: (1) Major depressive disorder, recurrent ICD Codes: F33.9 - Major depressive disorder, recurrent, unspecified (2) Alcohol use disorder ICD Codes: F10.99 - Alcohol use, unspecified with unspecified alcohol-induced disorder Assessment & Plan Patient at this time continues report feeling depressed due to her psychosocial circumstances in which patient is unclear whether she is able to be be accepted to a sober living facility. Patient denies any suicidal ideations at this time. Patient continues to want to reach sobriety and is actively looking for assistance to be able to pay for her intake and accepting sober living facility. Patient is aware that if she is not able to come up with enough funds to go into this facility patient may likely have to stay at homeless [facility] after her mother can send somebody for her intake. Continue current treatment for now. Discharge planning in progress Justification for Cont. Inpt. At risk for further decompensation at lower level of care Discharge Planning Patient to go to sober living Problem Qualifiers (1) Major depressive disorder, recurrent: Qualified Codes: F33.2 - Major depressive disorder, recurrent severe without psychotic features Sree Jameson MD Oct 03, 2017 17:32
[2017-10-03 17:58] VITALS: BP 108/69; PULSE 69; RESP 16; TEMP 97.6; O2SAT 95
[2017-10-03] MEDS: ZOLPIDEM TARTRATE 5 MG TAB PO SCH (20:58)
[2017-10-03] MEDS: REMOVE OLD NICODERM (NICOTINE) PATCH T-DERMAL SCH (21:00)
[2017-10-04] MEDS: LORazepam 1 MG TAB PO PRN (01:21)
[2017-10-04 05:56] VITALS: BP 93/56; PULSE 55; RESP 16; TEMP 97.7; O2SAT 98
[2017-10-04] MEDS: LEVOTHYROXINE SODIUM 50 MCG TAB PO SCH (05:57)
[2017-10-04] MEDS ORDERED: VENL150C39 PO (08:58)
[2017-10-04] MEDS ORDERED: GABA600T PO (08:58)
[2017-10-04] MEDS ORDERED: VENL75XR PO (08:58)
[2017-10-04] MEDS ORDERED: AMBI5TAB PO (08:58)
[2017-10-04] MEDS ORDERED: LEVO.05 PO (08:58)
[2017-10-04] MEDS ORDERED: BUSP10TA PO (08:58)
[2017-10-04] MEDS: NICOTINE 21 MG/24 HR PATCH T-DERMAL SCH (09:00)
--- NOTE | 2017-10-04 09:04 | HHI.DS ---
Psychiatry Discharge Summary Inpatient Psychiatric care?: Yes Advance Directive: No Mental Health AdvanceDirective: No Health Care Proxy: No Admission Admission Date Sep 26, 2017 at 12:30 Admission Diagnosis: (1) Major depressive disorder, recurrent ICD Code: F33.9 - Major depressive disorder, recurrent, unspecified (2) Alcohol use disorder ICD Code: F10.99 - Alcohol use, unspecified with unspecified alcohol-induced disorder Brief History The patient is a 56-year-old woman, domiciled in a sober house [address], single, employed in [employer], with psychiatric history of depression, anxiety , alcohol use disorder, no previous psychiatric hospitalizations, no previous suicidal attempts, she is on Effexor 300 mg, BuSpar 15 mg, gabapentin 600 mg 3 times a day, this medication was prescribed by a psychiatrist in [place] , she has medical history significant for hypothyroidism, hypertension, who presented to [facility] ED with altered mental status after intentionally overdosing on gabapentin and BuSpar which after medical stabilization was transferred to the inpatient psychiatry unit under [facility] for suicide attempt via overdose. Patient was seen through psychiatry consult while the medical floor was noted to be depressed, tearful and sad as well as stating that she did not deserve to live anymore. Patient was found lying in hospital bed, cooperative. Patient's was noted to be tearful stating that she is in pain secondary to her recent rib fractures from a fall she suffered prior to her admission. Patient states that she had been drinking for past 5 days before coming to the hospital and prior to that had been drinking daily for about 5 years about 1-2 pints of vodka. She mentions that she had been sober for about 6 months then relapsed and then again began to be sore for the past 30 days prior to his recent episode. Patient mentions for the past 3 days she was living in a sober house called [address] but was recently kicked out due to her recent relapse. Patient states that she had began drinking had fallen and hurt her ribs and was caught in the sober house where she was kicked out and put in a hotel that night. Patient states that the patient continues to drink and he'll return back to the sober house the next day and so they're all her belongings were packed up and was able to return at which point she felt more depressed and had gone to the convenience store which she then overdosed on handful of pills along with continued to drink beer which she then called EMS. Patient states that she does not want to but couldn't take the pain anymore. Patient states that this time she feels "ashamed", continues to report feeling depressed due to her recent circumstances but continue to be motivated to obtain sobriety. Denies any perceptual disturbances, SI or HI or delusions at this time. Past psychiatric history: Previous psychiatric history of depression, alcohol use disorder, no prior psychiatric admissions was previous suicide attempts or self-injurious behavior. Past medical history: Hypertension and hypothyroidism Allergies: NKDA Substance use history: Alcohol use as stated in history of present illness, denies of any other substances. Social history: Patient domiciled sober living home previously currently homeless, , employed at [employer]. Patient 's name is Jona Hurtado ( no number provided). Tobacco Use In Past 30 Days: 5 or More Cigarettes/Day Alcohol Use: 4 or More Times Per Week Hospital Course The patient is a 56-year-old woman, domiciled in a [facility] [address] , single, employed in [employer], with psychiatric history of depression, anxiety , alcohol use disorder, no previous psychiatric hospitalizations, no previous suicidal attempts, she is on Effexor 300 mg, BuSpar 15 mg, gabapentin 600 mg 3 times a day, this medication was prescribed by a psychiatrist in [place] , she has medical history significant for hypothyroidism, hypertension, who presented to [facility] ED with altered mental status after intentionally overdosing on gabapentin and BuSpar which after medical stabilization was transferred to the inpatient psychiatry unit under [facility] for suicide attempt via overdose for further evaluation and management. Patient was started on Effexor and titrated to 150/50 mg daily along with BuSpar 20 mg by mouth twice a day and gabapentin 600 mg by mouth 3 times a day along with zolpidem 5mg by mouth at bedtime for insomnia. Patient initially was endorsing thoughts of not wanting to be alive to her recent psychosocial stressors and recent relapse of alcohol use. Patient continue with treatment and was noted to have improvement of mood, was noted to be cooperative with staff as well as being future oriented and wanted to continue to try to achieve sobriety. Patient was noted to have improvement of insight and judgment as well. Patient was adherent to medication regimen and recommendations as per primary medical team. Upon discharge patient stated feeling good, stated feeling okay with returning back to sober living facility, was calm and cooperative with staff. She agreed to continuing medical recommendations, treatment and attend outpatient follow up appointments for continuity of care. Patient was counseled on abstinence from alcohol and substance use. Patient; denies SI, HI, AVH or delusions. Supportive psychotherapy provided. Patient advised to call 911 or return back to the ED in case of any emergency. Patient agrees with plan. Results Blood Pressure 93 / 56 Vital Signs Date Time Temp Pulse Resp B/P (MAP) Pulse Ox O2 Delivery O2 Flow Rate FiO2 10/04/17 05:56 97.7 55 16 93/56 (68) 98 Laboratory Results Test 09/27/17 08:26 Cholesterol Level 222 MG/DL (120-200) HDL Cholesterol 57.2 MG/DL (40.0-60.0) Hemoglobin A1c 5.8 % (4.3-6.0) LDL Cholesterol 131 MG/DL (0-99) Triglycerides Level 168 MG/DL (42-150) Summary of Procedures None Imaging Last Impressions Chest X-Ray 09/27/17 0000 Signed Impressions: Service Date/Time: Wednesday, September 27, 2017 13:03 - CONCLUSION: 1. Minimal basilar atelectasis or scarring. No effusion or pneumothorax. Daniel Jimenez MD Pending results at discharge: No Medications # of Antipsychotic meds at D/C: 0 Approp Antipsych med options 1 - Minimum of three failed multiple trials of monotherapy. 2 - Documented plan to taper to monotherapy due to previous use of multiple meds OR cross-taper in progress at D/C. 3 - Documentation of augmentation of Clozapine. 4 - Justification other than those listed in allowable values 1-3, document here : Discharge Discharge Date: Oct 04, 2017 Discharge Diagnosis: (1) Major depressive disorder, recurrent ICD Code: F33.9 - Major depressive disorder, recurrent, unspecified (2) Alcohol use disorder ICD Code: F10.99 - Alcohol use, unspecified with unspecified alcohol-induced disorder Pt Condition on Discharge: Stable Discharge Disposition: [facility] Discharge Instructions Diet Instructions: Heart Healthy Diet Activities you can perform: Regular-No Restrictions Discharge Time > 30 minutes Mental Status Examination Appearance: Appropriate Consciousness: Alert Orientation: Person, Place, Date/Time Speech: Unremarkable Language: Adequate Fund of Knowledge: Inadequate Attention and Concentration: Adequate Memory: Unremarkable Mood: Appropriate Affect: Appropriate, Other (tearful) Thought Process & Associations: Intact, Logical, Goal directed, Linear Thought Content: Appropriate Hallucination Type: None Delusion Type: None Suicidal Ideation: No Suicidal Plan: No Suicidal Intention: No Homicidal Ideation: No Homicidal Plan: No Homicidal Intention: No Insight: Adequate Judgment: Adequate Discharge/Advance Care Plan Health Problems: (1) Major depressive disorder, recurrent (2) Alcohol use disorder Goals to promote your health * To prevent worsening of your condition and complications * To maintain your health at the optimal level Directions to meet your goals Take your medications as prescribed Follow your dietary instruction Follow activity as directed Keep your appointments as scheduled Take your immunizations and boosters as scheduled If your symptoms worsen call your PCP, if no PCP go to Urgent Care Center or Emergency Room For 28/03 questions related to your inpatient stay or results of tests pending at discharge, please contact Dr. Sree Jameson at Smoking is Dangerous to Your Health. Avoid second hand smoking Problem Qualifiers (1) Major depressive disorder, recurrent: Qualified Codes: F33.2 - Major depressive disorder, recurrent severe without psychotic features Sree Jameson MD Oct 04, 2017 09:04
[2017-10-04] MEDS: VENLAFAXINE HCL XR 75 MG CAP PO SCH (09:46)
[2017-10-04] MEDS: busPIRone HCL 10 MG TAB PO SCH (09:46)
[2017-10-04] MEDS: GABAPENTIN 300 MG CAP PO SCH (09:46)
[2017-10-04] MEDS: traMADol HCL 50 MG TAB PO PRN (09:47)
[2017-10-04] MEDS ORDERED: TRAM50 PO (10:39)
== END 2017-10-04 12:45 | DRG 885 ==
LOC: H4EA 12:30
PROVIDERS: ADMIT Student in an Organized Health Care Education/Training Program; ATTEND Student in an Organized Health Care Education/Training Program
DX: F33.9 Major depressive disorder, recurrent, unspecified (principal); I10 Essential (primary) hypertension; F10.10 Alcohol abuse, uncomplicated; Z59.0 Homelessness; R07.81 Pleurodynia; S22.31XD Fracture of one rib, right side, subsequent encounter for fracture with routine healing; F17.210 Nicotine dependence, cigarettes, uncomplicated; E03.9 Hypothyroidism, unspecified
CPT/HCPCS: 71046; 80048; 80061; 83036; 94150; J2060

== ENCOUNTER 2017-10-29 15:34 | Emergency (ER) | payer BC, OTHER ==
[~2017-10-29] VITALS: Ht 175.3 cm; Wt 77.5 kg
[~2017-10-29 15:34] MED LIST changes: +AMBI5TAB PO; +BUSP10TA PO; -BUSP15TA PO; -ROBA500T PO; +TRAM50 PO; +VENL150C39 PO; +VENL75XR PO
[2017-10-29 15:56] VITALS: BP 120/68; PULSE 72; RESP 20; TEMP 98; O2SAT 96
--- NOTE | 2017-10-29 17:18 | PD ---
HPI Chief Complaint: Psychiatric Symptoms Time Seen by Provider: 16:45 Travel History International Travel<30 days: No Contact w/Intl Traveler<30days: No Traveled to known affect area: No History of Present Illness HPI 56-year-old female arrives via [facility] under Mendoza act from [place] [employer]. According to law enforcement report the patient "states that she attempted to harm herself by combining narcotics with alcohol. Mrs. Rollins stated that she wanted to harm herself because she feels depressed." The patient reports taking BuSpar, clonidine, and drinking alcohol. She does not know how many pills she took. She says she took them about 6 hours ago. She reports also falling today because of drinking alcohol. She said she fell 2 weeks ago and fractured her right ribs and she was seen here. She reports falling to her right side. She denies hitting her head or loss of consciousness. Denies neck pain or back pain. She says she does not want to kill herself she just does not want to deal with all the "bullshit" with her family. She also states that she wants all her pain to go away. Says she does not know how to deal with anything. She denies having a plan. Denies history of attempts of suicide. Denies illicit drug use. Denies homicidal ideation. Denies visual or auditory hallucinations. Reports that she is a "alcoholic." Reports drinking alcohol today, but does not specify how much. Her rib cage pain is worse with movement and deep breathing. Denies fever, vomiting, hemoptysis, shortness of breath, difficulty breathing. She rates the pain 10/ 10. Describes it as a throbbing sensation. Symptoms were aggravated by her family, life situations, and depression. Unknown onset. Unknown duration. Symptoms are moderate to severe in severity. No known relieving or aggravating factors. No primary care provider. History of hypothyroidism. No known allergies. PFSH Past Medical History Anxiety: Yes Depression: Yes Cardiovascular Problems: No Diminished Hearing: No Psychiatric: Yes Tetanus Vaccination: Unknown Influenza Vaccination: No ?: Not Tubal Ligation: Yes Past Surgical History Tonsillectomy: Yes Social History Alcohol Use: Yes (VODKA, BEER) Tobacco Use: Yes (2 PPD) Substance Use: No Allergies-Medications (Allergen,Severity, Reaction): Coded Allergies: No Known Allergies (Unverified , 11/03/17) Reported Meds & Prescriptions Reported Meds & Active Scripts Active Venlafaxine ER 24 HR (Venlafaxine HCl) 150 Mg Cap 150 Mg PO DAILY Synthroid (Levothyroxine Sodium) 50 Mcg Tab 50 Mcg PO DAILY 30 Days Reported Methocarbamol 500 Mg Tab 500 Mg PO TID Clonidine (Clonidine HCl) 0.1 Mg Tab 0.1 Mg PO TID Buspirone (Buspirone HCl) 15 Mg Tab 15 Mg PO TID Review of Systems Except as stated in HPI: all other systems reviewed are Neg Physical Exam Narrative GENERAL: Well-nourished, well-developed female patient, in no acute distress SKIN: Warm and dry. HEAD: Atraumatic. Normocephalic. EYES: Pupils equal and round. ENT: Mucosa pink and moist. NECK: Supple. Trachea midline. CHEST: Tenderness on palpation to the right lateral/anterior rib cage just below the right breast; without erythema, ecchymosis, edema; without deformity or crepitance. No retractions or use of accessory muscles. CARDIOVASCULAR: Regular rate and rhythm. No murmur appreciated. RESPIRATORY: No accessory muscle use. Clear to auscultation. Breath sounds equal bilaterally. GASTROINTESTINAL: Abdomen soft, non-tender, nondistended. Hepatic and splenic margins not palpable. Bowel sounds are active 4 quadrants. MUSCULOSKELETAL: No obvious deformities. No clubbing. No cyanosis. No edema. NEUROLOGICAL: Awake and alert. Oriented 3. No obvious cranial nerve deficits. Motor grossly within normal limits. Normal speech. Moves all extremities. 5/5 strength to all extremities. PSYCHIATRIC: No delusional thought processes. No hallucinations. Data Data Last Documented VS Orders Orders Complete Blood Count With Diff (10/29/17 16:46) Comprehensive Metabolic Panel (10/29/17 16:46) Thyroid Stimulating Hormone (10/29/17 16:46) Psych Screen (10/29/17 16:46) Drug Screen, Random Urine (10/29/17 16:46) Alcohol (Ethanol) (10/29/17 16:46) Salicylates (Aspirin) (10/29/17 16:46) Tylenol (Acetaminophen) (10/29/17 16:46) Ribs, Uni (W/Exp Cxr-Min 3vw) (10/29/17 ) Ibuprofen (Motrin) (10/29/17 17:45) Ct Brain W/O Iv Contrast(Rout) (10/29/17 ) Electrocardiogram (10/29/17 ) Call Poison Control (10/29/17 18:11) Urinalysis - C+S If Indicated (10/29/17 18:33) Free Thyroxine (T4) (10/29/17 19:43) Acetamin-Codeine 300-30 Mg (Tylenol-Code (10/29/17 20:00) Levothyroxine (Synthroid) (10/30/17 08:00) Hydroxyzine Pamoate (Vistaril) (10/29/17 21:30) Diet Regular Basic (10/30/17 Breakfast) Ed Discharge Order (10/30/17 09:05) Labs Laboratory Tests Test 10/29/17 16:57 10/29/17 16:59 Urine Color STRAW Urine Turbidity CLEAR Urine pH 5.0 Urine Specific [place] 1.003 Urine Protein NEG mg/dL Urine Glucose (UA) NEG mg/dL Urine Ketones NEG mg/dL Urine Occult Blood NEG Urine Nitrite NEG Urine Bilirubin NEG Urine Urobilinogen LESS THAN 2.0 MG/DL Urine Leukocyte Esterase NEG Urine RBC 1 /hpf Urine WBC LESS THAN 1 /hpf Urine Squamous Epithelial Cells <1 /hpf Urine Bacteria RARE /hpf Microscopic Urinalysis Comment CULT NOT INDICATED Urine Opiates Screen NEG Urine Barbiturates Screen NEG Urine Amphetamines Screen NEG Urine Benzodiazepines Screen NEG Urine Cocaine Screen NEG Urine Cannabinoids Screen NEG White Blood Count 10.5 TH/MM3 Red Blood Count 4.53 MIL/MM3 Hemoglobin 14.0 GM/DL Hematocrit 40.9 % Mean Corpuscular Volume 90.2 FL Mean Corpuscular Hemoglobin 31.0 PG Mean Corpuscular Hemoglobin Concent 34.3 % Red Cell Distribution Width 16.7 % Platelet Count 416 TH/MM3 Mean Platelet Volume 7.0 FL Neutrophils (%) (Auto) 60.9 % Lymphocytes (%) (Auto) 32.3 % Monocytes (%) (Auto) 4.1 % Eosinophils (%) (Auto) 1.6 % Basophils (%) (Auto) 1.1 % Neutrophils # (Auto) 6.4 TH/MM3 Lymphocytes # (Auto) 3.4 TH/MM3 Monocytes # (Auto) 0.4 TH/MM3 Eosinophils # (Auto) 0.2 TH/MM3 Basophils # (Auto) 0.1 TH/MM3 CBC Comment DIFF FINAL Differential Comment Blood Urea Nitrogen 10 MG/DL Creatinine 0.80 MG/DL Random Glucose 71 MG/DL Total Protein 8.8 GM/DL Albumin 3.8 GM/DL Calcium Level 8.5 MG/DL Alkaline Phosphatase 109 U/L Aspartate Amino Transf (AST/SGOT) 17 U/L Alanine Aminotransferase (ALT/SGPT) 16 U/L Total Bilirubin 0.2 MG/DL Sodium Level 139 MEQ/L Potassium Level 3.9 MEQ/L Chloride Level 106 MEQ/L Carbon Dioxide Level 26.3 MEQ/L Anion Gap 7 MEQ/L Estimat Glomerular Filtration Rate 75 ML/MIN Free Thyroxine 0.74 NG/DL Thyroid Stimulating Hormone 3rd Gen 13.600 uIU/ML Salicylates Level 3.0 MG/DL Acetaminophen Level LESS THAN 2.0 MCG/ML Ethyl Alcohol Level 291 MG/DL MDM Medical Decision Making Medical Screen Exam Complete: Yes Emergency Medical Condition: Yes Medical Record Reviewed: Yes Differential Diagnosis Fall, rib fracture, rib contusion, depression, suicidal ideation, suicidal threat, medical clearance for psychiatric admission Narrative Course Patient presents under a Mendoza act. Physical examination and vital signs are essentially unremarkable. Patient has no medical complaints to report. Psych screen has been ordered. If the laboratory results are unremarkable, the patient will be medically cleared for psychiatric evaluation and disposition. Diagnosis Primary Impression: Medical clearance for psychiatric admission Condition: Stable Maria D Dias Oct 29, 2017 17:18
[2017-10-29 17:37] LABS: AUTOMATED NEUTROPHIL # 6.4 TH/MM3 (1.8-7.7); BASOPHIL # 0.1 TH/MM3 (0-0.2); BASOPHIL % 1.1 % (0.0-2.0); EOSINOPHIL # 0.2 TH/MM3 (0-0.4); EOSINOPHIL % 1.6 % (0.0-4.0); HEMATOCRIT 40.9 % (35.0-46.0); LYMPH % 32.3 % (9.0-44.0); LYMPHOCYTE # 3.4 TH/MM3 (1.0-4.8); MEAN CELL VOLUME 90.2 FL (80.0-100.0); MEAN CORPUSCULAR HGB CONC 34.3 % (32.0-36.0); MONO % 4.1 % (0.0-8.0); MONOCYTE # 0.4 TH/MM3 (0-0.9); NEUT % 60.9 % (16.0-70.0); PLATELET COUNT 416 TH/MM3 (150-450); RED BLOOD COUNT 4.53 MIL/MM3 (4.00-5.30); RED CELL DISTRIBUTION WIDTH 16.7 % (11.6-17.2); WHITE BLOOD COUNT 10.5 TH/MM3 (4.0-11.0)
[2017-10-29] MEDS ORDERED: IBUPROFEN 800 MG TAB PO ONE (17:45)
[2017-10-29 17:53] LABS: ACETAMINOPHEN LESS THAN 2.0 MCG/ML (10.0-30.0); ALBUMIN 3.8 GM/DL (3.4-5.0); ALKALINE PHOSPHATASE 109 U/L (45-117); ALT (GPT) 16 U/L (10-53); AST (GOT) 17 U/L (15-37); BICARBONATE 26.3 MEQ/L (21.0-32.0); BLOOD UREA NITROGEN 10 MG/DL (7-18); CALCIUM 8.5 MG/DL (8.5-10.1); CHLORIDE 106 MEQ/L (98-107); GLOMERULAR FILTRATION RATE 75 ML/MIN (>89); GLUCOSE,RANDOM 71 MG/DL (74-106); SODIUM (NA) 139 MEQ/L (136-145); TOTAL BILIRUBIN ADULT 0.2 MG/DL (0.2-1.0); TOTAL PROTEIN 8.8 GM/DL (6.4-8.2)
--- NOTE | 2017-10-29 18:29 | RADRPT ---
EXAM DATE/TIME: 10/29/2017 18:19 [facility] COMPARISON: No previous studies available for comparison. INDICATIONS : Trauma, fall today. RADIATION DOSE: 44.95 CTDIvol (mGy) MEDICAL HISTORY : None SURGICAL HISTORY : Tubal ligation. ENCOUNTER: Initial ACUITY: 1 day PAIN SCALE: 3/10 LOCATION: Bilateral head TECHNIQUE: Multiple contiguous axial images were obtained of the head. Using automated exposure control and adj ustment of the mA and/or kV according to patient size, radiation dose was kept as low as reasonably a chievable to obtain optimal diagnostic quality images. DICOM format image data is available electro nically for review and comparison. FINDINGS: CEREBRUM: The ventricles are normal for age. There is bilateral cortical atrophy overlying both frontal lobes. No evidence of midline shift, mass lesion, hemorrhage or acute infarction. No extra-axial fluid col lections are seen. There is a calcified pineal gland measuring 1.3 x 1.4 cm. The pineal gland remains midline in position. POSTERIOR FOSSA: The cerebellum and brainstem are intact. The 4th ventricle is midline. The cerebellopontine angle i s unremarkable. EXTRACRANIAL: The visualized portion of the orbits is intact. SKULL: The calvaria is intact. No evidence of skull fracture. CONCLUSION: 1. Bilateral cortical frontal atrophy. 2. No acute pathology. Travon Gaming MD on October 29, 2017 at 18:26 Board Certified Radiologist. This report was verified electronically.
[2017-10-29 19:09] LABS: BACTERIA, URINE RARE /hpf; BILIRUBIN, URINE NEG (NEG); BLOOD, URINE NEG (NEG); GLUCOSE,URINE NEG (NEG); KETONE, URINE NEG (NEG); NITRITE,URINE NEG (NEG); SQUAMOUS EPITHELIAL CELL URINE <1 /hpf (0-5); URINE COLOR STRAW (YELLW/STRAW); URINE LEUKOCYTE ESTERASE NEG (NEG)
[2017-10-29 19:20] VITALS: BP 112/73; PULSE 71; RESP 18; O2SAT 100
--- NOTE | 2017-10-29 19:38 | RADRPT ---
EXAM DATE/TIME: 10/29/2017 19:10 [facility] COMPARISON: CHEST PA & LAT, September 27, 2017, 13:03. INDICATIONS : Fall. Right lower rib pain. MEDICAL HISTORY : None. SURGICAL HISTORY : None. ENCOUNTER: Initial ACUITY: 2 days PAIN SCORE: 7/10 LOCATION: Right upper chest FINDINGS: 5 views of the chest and right ribs demonstrate an old fracture of the right posterior seventh rib. N o acute rib fracture is identified. There is no pneumothorax. Surrounding structures demonstrate no a cute finding. CONCLUSION: No acute rib fracture or acute abnormality is identified. Kirill Mckeon MD on October 29, 2017 at 19:34 Board Certified Radiologist. This report was verified electronically.
[2017-10-29] MEDS ORDERED: ACETAMINOPHEN/CODEINE 300 MG/30 MG TAB PO ONE (20:00)
--- NOTE | 2017-10-29 21:07 | EKG ---
Date Performed: 10/29/2017 Time Performed: 18:40:19 PTAGE: 56 years EKG: Sinus rhythm NORMAL ECG PREVIOUS TRACING : 09/25/2017 21.34 No significant change from previous tracing noted. DOCTOR: Jw Gray Interpretating Date/Time 10/29/2017 21:06:40
[2017-10-29] MEDS ORDERED: LEVO75TA3 PO (21:18)
--- NOTE | 2017-10-29 21:19 | PD ---
Physical Exam Date Seen by Provider: Oct 29, 2017 Time Seen by Provider: 21:10 Narrative For full history and physical examination please see previous providers note. I assumed care of this patient change his shift, at that time we were waiting on labs and imaging to result to medically clear her. Data Data Last Documented VS Vital Signs Date Time Temp Pulse Resp B/P (MAP) Pulse Ox O2 Delivery O2 Flow Rate FiO2 10/29/17 19:20 71 18 112/73 (86) 100 Room Air 10/29/17 15:56 98.0 Orders Orders Complete Blood Count With Diff (10/29/17 16:46) Comprehensive Metabolic Panel (10/29/17 16:46) Thyroid Stimulating Hormone (10/29/17 16:46) Psych Screen (10/29/17 16:46) Drug Screen, Random Urine (10/29/17 16:46) Alcohol (Ethanol) (10/29/17 16:46) Salicylates (Aspirin) (10/29/17 16:46) Tylenol (Acetaminophen) (10/29/17 16:46) Ribs, Uni (W/Exp Cxr-Min 3vw) (10/29/17 ) Ibuprofen (Motrin) (10/29/17 17:45) Ct Brain W/O Iv Contrast(Rout) (10/29/17 ) Electrocardiogram (10/29/17 ) Call Poison Control (10/29/17 18:11) Urinalysis - C+S If Indicated (10/29/17 18:33) Free Thyroxine (T4) (10/29/17 19:43) Acetamin-Codeine 300-30 Mg (Tylenol-Code (10/29/17 20:00) Labs Laboratory Tests Test 10/29/17 16:57 10/29/17 16:59 Urine Color STRAW Urine Turbidity CLEAR Urine pH 5.0 Urine Specific [place] 1.003 Urine Protein NEG mg/dL Urine Glucose (UA) NEG mg/dL Urine Ketones NEG mg/dL Urine Occult Blood NEG Urine Nitrite NEG Urine Bilirubin NEG Urine Urobilinogen LESS THAN 2.0 MG/DL Urine Leukocyte Esterase NEG Urine RBC 1 /hpf Urine WBC LESS THAN 1 /hpf Urine Squamous Epithelial Cells <1 /hpf Urine Bacteria RARE /hpf Microscopic Urinalysis Comment CULT NOT INDICATED Urine Opiates Screen NEG Urine Barbiturates Screen NEG Urine Amphetamines Screen NEG Urine Benzodiazepines Screen NEG Urine Cocaine Screen NEG Urine Cannabinoids Screen NEG White Blood Count 10.5 TH/MM3 Red Blood Count 4.53 MIL/MM3 Hemoglobin 14.0 GM/DL Hematocrit 40.9 % Mean Corpuscular Volume 90.2 FL Mean Corpuscular Hemoglobin 31.0 PG Mean Corpuscular Hemoglobin Concent 34.3 % Red Cell Distribution Width 16.7 % Platelet Count 416 TH/MM3 Mean Platelet Volume 7.0 FL Neutrophils (%) (Auto) 60.9 % Lymphocytes (%) (Auto) 32.3 % Monocytes (%) (Auto) 4.1 % Eosinophils (%) (Auto) 1.6 % Basophils (%) (Auto) 1.1 % Neutrophils # (Auto) 6.4 TH/MM3 Lymphocytes # (Auto) 3.4 TH/MM3 Monocytes # (Auto) 0.4 TH/MM3 Eosinophils # (Auto) 0.2 TH/MM3 Basophils # (Auto) 0.1 TH/MM3 CBC Comment DIFF FINAL Differential Comment Blood Urea Nitrogen 10 MG/DL Creatinine 0.80 MG/DL Random Glucose 71 MG/DL Total Protein 8.8 GM/DL Albumin 3.8 GM/DL Calcium Level 8.5 MG/DL Alkaline Phosphatase 109 U/L Aspartate Amino Transf (AST/SGOT) 17 U/L Alanine Aminotransferase (ALT/SGPT) 16 U/L Total Bilirubin 0.2 MG/DL Sodium Level 139 MEQ/L Potassium Level 3.9 MEQ/L Chloride Level 106 MEQ/L Carbon Dioxide Level 26.3 MEQ/L Anion Gap 7 MEQ/L Estimat Glomerular Filtration Rate 75 ML/MIN Free Thyroxine 0.74 NG/DL Thyroid Stimulating Hormone 3rd Gen 13.600 uIU/ML Salicylates Level 3.0 MG/DL Acetaminophen Level LESS THAN 2.0 MCG/ML Ethyl Alcohol Level 291 MG/DL [facility] Medical Record Reviewed: Yes Supervised Visit with CAITLYN: No Interpretation(s) Last Impressions Ribs X-Ray 10/29/17 0000 Signed Impressions: Service Date/Time: Sunday, October 29, 2017 19:10 - CONCLUSION: No acute rib fracture or acute abnormality is identified. Kirill Mckeon MD Head CT 10/29/17 0000 Signed Impressions: Service Date/Time: Sunday, October 29, 2017 18:19 - CONCLUSION: 1. Bilateral cortical frontal atrophy. 2. No acute pathology. Travon Gaming MD Laboratory Tests Test 10/29/17 16:57 10/29/17 16:59 Urine Color STRAW Urine Turbidity CLEAR Urine pH 5.0 Urine Specific [place] 1.003 Urine Protein NEG mg/dL Urine Glucose (UA) NEG mg/dL Urine Ketones NEG mg/dL Urine Occult Blood NEG Urine Nitrite NEG Urine Bilirubin NEG Urine Urobilinogen LESS THAN 2.0 MG/DL Urine Leukocyte Esterase NEG Urine RBC 1 /hpf Urine WBC LESS THAN 1 /hpf Urine Squamous Epithelial Cells <1 /hpf Urine Bacteria RARE /hpf Microscopic Urinalysis Comment CULT NOT INDICATED Urine Opiates Screen NEG Urine Barbiturates Screen NEG Urine Amphetamines Screen NEG Urine Benzodiazepines Screen NEG Urine Cocaine Screen NEG Urine Cannabinoids Screen NEG White Blood Count 10.5 TH/MM3 Red Blood Count 4.53 MIL/MM3 Hemoglobin 14.0 GM/DL Hematocrit 40.9 % Mean Corpuscular Volume 90.2 FL Mean Corpuscular Hemoglobin 31.0 PG Mean Corpuscular Hemoglobin Concent 34.3 % Red Cell Distribution Width 16.7 % Platelet Count 416 TH/MM3 Mean Platelet Volume 7.0 FL Neutrophils (%) (Auto) 60.9 % Lymphocytes (%) (Auto) 32.3 % Monocytes (%) (Auto) 4.1 % Eosinophils (%) (Auto) 1.6 % Basophils (%) (Auto) 1.1 % Neutrophils # (Auto) 6.4 TH/MM3 Lymphocytes # (Auto) 3.4 TH/MM3 Monocytes # (Auto) 0.4 TH/MM3 Eosinophils # (Auto) 0.2 TH/MM3 Basophils # (Auto) 0.1 TH/MM3 CBC Comment DIFF FINAL Differential Comment Blood Urea Nitrogen 10 MG/DL Creatinine 0.80 MG/DL Random Glucose 71 MG/DL Total Protein 8.8 GM/DL Albumin 3.8 GM/DL Calcium Level 8.5 MG/DL Alkaline Phosphatase 109 U/L Aspartate Amino Transf (AST/SGOT) 17 U/L Alanine Aminotransferase (ALT/SGPT) 16 U/L Total Bilirubin 0.2 MG/DL Sodium Level 139 MEQ/L Potassium Level 3.9 MEQ/L Chloride Level 106 MEQ/L Carbon Dioxide Level 26.3 MEQ/L Anion Gap 7 MEQ/L Estimat Glomerular Filtration Rate 75 ML/MIN Free Thyroxine 0.74 NG/DL Thyroid Stimulating Hormone 3rd Gen 13.600 uIU/ML Salicylates Level 3.0 MG/DL Acetaminophen Level LESS THAN 2.0 MCG/ML Ethyl Alcohol Level 291 MG/DL Vital Signs Date Time Temp Pulse Resp B/P (MAP) Pulse Ox O2 Delivery O2 Flow Rate FiO2 10/29/17 19:20 71 18 112/73 (86) 100 Room Air 10/29/17 16:10 16 10/29/17 15:56 98.0 72 20 120/68 (85) [address] shows bilateral cortical frontal atrophy. No acute pathology. This was read by the radiologist X-ray of the ribs show no acute rib fracture or acute abnormality identified. That does show an old seventh rib fracture. Labs reviewed, CBC with no acute findings, urinalysis is unremarkable, urine drug screen is negative, acetaminophen and salicylate levels are unremarkable. Patient's alcohol level is 291. Chemistry is unremarkable TSH is elevated at 13.6, free T4 0.74. Patient is advised to follow-up as outpatient for abnormal thyroid function. She reports compliance with levothyroxine 50 mcg daily, her last dose was this morning. Patient will be given a prescription for levothyroxine 75 mcg, she was also given verbal and written information regarding the [facility] and encouraged to establish a primary care. She verbalized understanding. She is medically cleared for psychiatric evaluation at this time. Diagnosis Primary Impression: Medical clearance for psychiatric admission Additional Impression: Hypothyroidism Qualified Codes: E03.9 - Hypothyroidism, unspecified Referrals: [facility] 3 weeks Call for an appointment as soon as possible as it may take several weeks to obtain one. Patient Instructions: General Instructions, Hypothyroidism (DC), Levothyroxine (By mouth) Additional Instruction: Follow-up at [facility] for routine health care and reevaluation of your thyroid function. Med/Other Pt SpecificInfo: Prescription(s) given Scripts Levothyroxine (Levothyroxine) 75 Mcg Tab 75 MCG PO DAILY for Thyroid, #30 TAB 0 Refills Prov: Roseann Farrell 10/29/17 Condition: Stable Roseann Farrell Oct 29, 2017 21:19
[2017-10-29 22:52] VITALS: BP 115/64; PULSE 80; RESP 18; TEMP 98.2; O2SAT 96
[2017-10-30 03:11] VITALS: BP 100/55; PULSE 69; RESP 18; TEMP 99.2; O2SAT 96
[2017-10-30] MEDS ORDERED: METH500T3 PO (06:16)
[2017-10-30] MEDS ORDERED: CLON0.1T PO (06:16)
[2017-10-30] MEDS ORDERED: BUSP15TA PO (06:16)
[2017-10-30 06:55] VITALS: BP 127/69; PULSE 79; RESP 18; TEMP 98.1; O2SAT 100
[2017-10-30] MEDS ORDERED: LEVOTHYROXINE SODIUM 75 MCG TAB PO ONE (08:00)
--- NOTE | 2017-10-30 09:05 | PD ---
Physical Exam Time Seen by Provider: 09:04 Narrative The patient is being transferred to the [facility] for continued care and evaluation. Data Data Last Documented VS Vital Signs Date Time Temp Pulse Resp B/P (MAP) Pulse Ox O2 Delivery O2 Flow Rate FiO2 10/30/17 06:55 98.1 79 18 127/69 (88) 100 Room Air Orders Orders Complete Blood Count With Diff (10/29/17 16:46) Comprehensive Metabolic Panel (10/29/17 16:46) Thyroid Stimulating Hormone (10/29/17 16:46) Psych Screen (10/29/17 16:46) Drug Screen, Random Urine (10/29/17 16:46) Alcohol (Ethanol) (10/29/17 16:46) Salicylates (Aspirin) (10/29/17 16:46) Tylenol (Acetaminophen) (10/29/17 16:46) Ribs, Uni (W/Exp Cxr-Min 3vw) (10/29/17 ) Ibuprofen (Motrin) (10/29/17 17:45) Ct Brain W/O Iv Contrast(Rout) (10/29/17 ) Electrocardiogram (10/29/17 ) Call Poison Control (10/29/17 18:11) Urinalysis - C+S If Indicated (10/29/17 18:33) Free Thyroxine (T4) (10/29/17 19:43) Acetamin-Codeine 300-30 Mg (Tylenol-Code (10/29/17 20:00) Levothyroxine (Synthroid) (10/30/17 08:00) Hydroxyzine Pamoate (Vistaril) (10/29/17 21:30) Diet Regular Basic (10/30/17 Breakfast) Labs Laboratory Tests Test 10/29/17 16:57 10/29/17 16:59 Urine Color STRAW Urine Turbidity CLEAR Urine pH 5.0 Urine Specific [place] 1.003 Urine Protein NEG mg/dL Urine Glucose (UA) NEG mg/dL Urine Ketones NEG mg/dL Urine Occult Blood NEG Urine Nitrite NEG Urine Bilirubin NEG Urine Urobilinogen LESS THAN 2.0 MG/DL Urine Leukocyte Esterase NEG Urine RBC 1 /hpf Urine WBC LESS THAN 1 /hpf Urine Squamous Epithelial Cells <1 /hpf Urine Bacteria RARE /hpf Microscopic Urinalysis Comment CULT NOT INDICATED Urine Opiates Screen NEG Urine Barbiturates Screen NEG Urine Amphetamines Screen NEG Urine Benzodiazepines Screen NEG Urine Cocaine Screen NEG Urine Cannabinoids Screen NEG White Blood Count 10.5 TH/MM3 Red Blood Count 4.53 MIL/MM3 Hemoglobin 14.0 GM/DL Hematocrit 40.9 % Mean Corpuscular Volume 90.2 FL Mean Corpuscular Hemoglobin 31.0 PG Mean Corpuscular Hemoglobin Concent 34.3 % Red Cell Distribution Width 16.7 % Platelet Count 416 TH/MM3 Mean Platelet Volume 7.0 FL Neutrophils (%) (Auto) 60.9 % Lymphocytes (%) (Auto) 32.3 % Monocytes (%) (Auto) 4.1 % Eosinophils (%) (Auto) 1.6 % Basophils (%) (Auto) 1.1 % Neutrophils # (Auto) 6.4 TH/MM3 Lymphocytes # (Auto) 3.4 TH/MM3 Monocytes # (Auto) 0.4 TH/MM3 Eosinophils # (Auto) 0.2 TH/MM3 Basophils # (Auto) 0.1 TH/MM3 CBC Comment DIFF FINAL Differential Comment Blood Urea Nitrogen 10 MG/DL Creatinine 0.80 MG/DL Random Glucose 71 MG/DL Total Protein 8.8 GM/DL Albumin 3.8 GM/DL Calcium Level 8.5 MG/DL Alkaline Phosphatase 109 U/L Aspartate Amino Transf (AST/SGOT) 17 U/L Alanine Aminotransferase (ALT/SGPT) 16 U/L Total Bilirubin 0.2 MG/DL Sodium Level 139 MEQ/L Potassium Level 3.9 MEQ/L Chloride Level 106 MEQ/L Carbon Dioxide Level 26.3 MEQ/L Anion Gap 7 MEQ/L Estimat Glomerular Filtration Rate 75 ML/MIN Free Thyroxine 0.74 NG/DL Thyroid Stimulating Hormone 3rd Gen 13.600 uIU/ML Salicylates Level 3.0 MG/DL Acetaminophen Level LESS THAN 2.0 MCG/ML Ethyl Alcohol Level 291 MG/DL [facility] Supervised Visit with CAITLYN: No Narrative Course The patient is being transferred to the [facility] for continued care and evaluation. Diagnosis Primary Impression: Medical clearance for psychiatric admission Additional Impression: Hypothyroidism Qualified Codes: E03.9 - Hypothyroidism, unspecified Referrals: [facility] 3 weeks Call for an appointment as soon as possible as it may take several weeks to obtain one. Patient Instructions: General Instructions, Levothyroxine (By mouth), Hypothyroidism (DC) Additional Instruction: Follow-up at [facility] for routine health care and reevaluation of your thyroid function. Disposition: 67 DISC TO [facility] Condition: Stable Maria D Dias Oct 30, 2017 09:05
[2017-10-30 11:31] VITALS: BP 115/67; PULSE 80; RESP 18; O2SAT 98
== END 2017-10-30 13:21 ==
LOC: NEPD 15:34 → NEPJ 10-30 13:21
DX: E03.9 Hypothyroidism, unspecified (principal); F17.200 Nicotine dependence, unspecified, uncomplicated; Z79.899 Other long term (current) drug therapy
CPT/HCPCS: 70450; 71101; 80053; 80307; 81001; 84439; 84443; 85025; 93005; 99285

== ENCOUNTER 2017-11-03 23:02 | Emergency (ER) | payer BC, OTHER ==
[~2017-11-03] VITALS: Ht 175.3 cm; Wt 77.5 kg
[~2017-11-03 23:02] MED LIST changes: -AMBI5TAB PO; -BUSP10TA PO; +BUSP15TA PO; +CLON0.1T PO; -GABA600T PO; +METH500T3 PO; -TRAM50 PO; -VENL75XR PO
[2017-11-03 23:36] VITALS: BP 87/56; PULSE 72; RESP 18; TEMP 97.6; O2SAT 98
[2017-11-03] MEDS ORDERED: SODIUM CHLOR 0.9% 1000 ML INJ 800 ML IV ONE (23:52)
[2017-11-03] MEDS ORDERED: SODIUM CHLOR 0.9% 1000 ML INJ 1,000 ML IV ONE (23:52)
[2017-11-03 23:55] VITALS: BP 113/59; PULSE 71; RESP 18; O2SAT 97
--- NOTE | 2017-11-03 23:55 | PD ---
HPI Chief Complaint: Cold / Flu Symptoms Time Seen by Provider: 23:49 Travel History International Travel<30 days: No Contact w/Intl Traveler<30days: No Traveled to known affect area: No History of Present Illness HPI 56-year-old female here for evaluation of feeling sick. The patient blew she may have the flu. She describes sore throat, generalized malaise. She denies cough. She admits to being homeless and drinking alcohol throughout the day today. She denies illicit drug use. Chart review shows that the patient was here for psychiatric evaluation on 10/29/17 and living arrangements were made for her to stay at the [facility] Past Medical History Anxiety: Yes Depression: Yes Cardiovascular Problems: No Diminished Hearing: No Psychiatric: Yes Tubal Ligation: Yes Past Surgical History Tonsillectomy: Yes Social History Alcohol Use: Yes (VODKA, BEER) Tobacco Use: Yes (09/06 PPD) Substance Use: Yes (alcohol) Allergies-Medications (Allergen,Severity, Reaction): Coded Allergies: No Known Allergies (Unverified , 11/03/17) Reported Meds & Prescriptions Reported Meds & Active Scripts Active Venlafaxine ER 24 HR (Venlafaxine HCl) 150 Mg Cap 150 Mg PO DAILY Synthroid (Levothyroxine Sodium) 50 Mcg Tab 50 Mcg PO DAILY 30 Days Reported Methocarbamol 500 Mg Tab 500 Mg PO TID Clonidine (Clonidine HCl) 0.1 Mg Tab 0.1 Mg PO TID Buspirone (Buspirone HCl) 15 Mg Tab 15 Mg PO TID Review of Systems Except as stated in HPI: all other systems reviewed are Neg Physical Exam Narrative GENERAL: Well-developed, well-nourished, disheveled, comfortable, no apparent distress. SKIN: Focused skin assessment warm/dry. No rash. HEAD: Atraumatic. Normocephalic. EYES: Pupils equal and round. No scleral icterus. No injection or drainage. ENT: No nasal bleeding or discharge. Mucous membranes pink and dry. Normal pharynx. Bilateral tympanic members and external auditory canals are normal. NECK: Trachea midline. No JVD. No nuchal rigidity. CARDIOVASCULAR: Regular rate and rhythm. No murmur appreciated. RESPIRATORY: No accessory muscle use. Clear to auscultation. Breath sounds equal bilaterally. GASTROINTESTINAL: Abdomen soft, non-tender, nondistended. MUSCULOSKELETAL: No obvious deformities. No clubbing. No cyanosis. No edema. NEUROLOGICAL: Awake and alert. No obvious cranial nerve deficits. Motor grossly within normal limits. Normal speech. PSYCHIATRIC: Appropriate mood and affect; insight and judgment normal. Data Data Last Documented VS Vital Signs Date Time Temp Pulse Resp B/P (MAP) Pulse Ox O2 Delivery O2 Flow Rate FiO2 11/03/17 23:55 71 18 113/59 (77) 97 Nasal Cannula 2.00 11/03/17 23:36 97.6 Orders Orders Sepsis Workup Initiated (11/03/17 ) Complete Blood Count With Diff (11/03/17 23:52) Comprehensive Metabolic Panel (11/03/17 23:52) Lactic Acid Sepsis Protocol (11/03/17 23:52) Urinalysis - C+S If Indicated (11/03/17 23:52) Influenzae A/B Antigen (11/03/17 23:52) Blood Culture (11/03/17 23:52) Chest, Single Ap (11/03/17 23:52) Ecg Monitoring (11/03/17 23:52) Iv Access Insert/Monitor (11/03/17 23:52) Oximetry (11/03/17 23:52) Acetaminophen (Tylenol) (11/04/17 00:00) Sodium Chlor 0.9% 1000 Ml Inj (Ns 1000 M (11/03/17 23:52) Sodium Chlor 0.9% 1000 Ml Inj (Ns 1000 M (11/03/17 23:52) Group A Rapid Strep Screen (11/03/17 23:52) Alcohol (Ethanol) (11/03/17 23:52) Strep Culture (Group A) (11/04/17 00:00) Labs Laboratory Tests Test 11/04/17 00:05 White Blood Count 16.3 TH/MM3 Red Blood Count 4.68 MIL/MM3 Hemoglobin 14.2 GM/DL Hematocrit 42.4 % Mean Corpuscular Volume 90.5 FL Mean Corpuscular Hemoglobin 30.4 PG Mean Corpuscular Hemoglobin Concent 33.5 % Red Cell Distribution Width 16.8 % Platelet Count 396 TH/MM3 Mean Platelet Volume 7.5 FL Neutrophils (%) (Auto) 74.0 % Lymphocytes (%) (Auto) 19.0 % Monocytes (%) (Auto) 4.5 % Eosinophils (%) (Auto) 1.9 % Basophils (%) (Auto) 0.6 % Neutrophils # (Auto) 12.1 TH/MM3 Lymphocytes # (Auto) 3.1 TH/MM3 Monocytes # (Auto) 0.7 TH/MM3 Eosinophils # (Auto) 0.3 TH/MM3 Basophils # (Auto) 0.1 TH/MM3 CBC Comment DIFF FINAL Differential Comment Blood Urea Nitrogen 12 MG/DL Creatinine 0.94 MG/DL Random Glucose 103 MG/DL Total Protein 8.8 GM/DL Albumin 3.9 GM/DL Calcium Level 8.9 MG/DL Alkaline Phosphatase 104 U/L Aspartate Amino Transf (AST/SGOT) 14 U/L Alanine Aminotransferase (ALT/SGPT) 15 U/L Total Bilirubin 0.2 MG/DL Sodium Level 137 MEQ/L Potassium Level 3.6 MEQ/L Chloride Level 103 MEQ/L Carbon Dioxide Level 22.0 MEQ/L Anion Gap 12 MEQ/L Estimat Glomerular Filtration Rate 62 ML/MIN Lactic Acid Level 1.5 mmol/L Ethyl Alcohol Level 206 MG/DL [facility] Medical Decision Making Medical Screen Exam Complete: Yes Emergency Medical Condition: Yes Differential Diagnosis Sepsis, pneumonia, metabolic abnormality, alcohol intoxication, influenza Narrative Course Initial vital signs in triage showed a blood pressure of 87/56 which when repeated upon arrival to the exam room was 113/59, heart rate 72, pulse ox 98% on room air, oral temp of 97.6F. CBC: WBC 16.3, hemoglobin 14.2, hematocrit 42.5, platelets 396, neutrophils 74%. CMP is unremarkable. Lactic acid is 1.5. Alcohol level is 206. Group A strep is negative. Influenza is negative. Chest x-ray: No infiltrate seen. Patient was made aware of all findings. She is resting comfortably. She will be allowed to sleep off her intoxication in the emergency department. Diagnosis Primary Impression: Alcohol intoxication Qualified Codes: F10.920 - Alcohol use, unspecified with intoxication, uncomplicated Additional Impression: URI (upper respiratory infection) Qualified Codes: J06.9 - Acute upper respiratory infection, unspecified Referrals: [facility] 1 day Disposition: 01 DISCHARGE HOME Condition: Stable Venkat Cole MD Nov 03, 2017 23:55
[2017-11-04] MEDS ORDERED: ACETAMINOPHEN 325 MG TAB PO ONE
[2017-11-04 00:27] LABS: AUTOMATED NEUTROPHIL # 12.1 TH/MM3 (1.8-7.7); BASOPHIL # 0.1 TH/MM3 (0-0.2); BASOPHIL % 0.6 % (0.0-2.0); EOSINOPHIL # 0.3 TH/MM3 (0-0.4); EOSINOPHIL % 1.9 % (0.0-4.0); HEMATOCRIT 42.4 % (35.0-46.0); HEMOGLOBIN 14.2 GM/DL (11.6-15.3); LYMPHOCYTE # 3.1 TH/MM3 (1.0-4.8); MEAN CELL VOLUME 90.5 FL (80.0-100.0); MEAN CORPUSCULAR HEMOGLOBIN 30.4 PG (27.0-34.0); MEAN CORPUSCULAR HGB CONC 33.5 % (32.0-36.0); MEAN PLATELET VOLUME 7.5 FL (7.0-11.0); MONO % 4.5 % (0.0-8.0); MONOCYTE # 0.7 TH/MM3 (0-0.9); PLATELET COUNT 396 TH/MM3 (150-450); RED BLOOD COUNT 4.68 MIL/MM3 (4.00-5.30); RED CELL DISTRIBUTION WIDTH 16.8 % (11.6-17.2); WHITE BLOOD COUNT 16.3 TH/MM3 (4.0-11.0)
[2017-11-04 00:46] LABS: ALBUMIN 3.9 GM/DL (3.4-5.0); AST (GOT) 14 U/L (15-37); BLOOD UREA NITROGEN 12 MG/DL (7-18); CALCIUM 8.9 MG/DL (8.5-10.1); CHLORIDE 103 MEQ/L (98-107); CREATININE 0.94 MG/DL (0.50-1.00); GLOMERULAR FILTRATION RATE 62 ML/MIN (>89); GLUCOSE,RANDOM 103 MG/DL (74-106); SODIUM (NA) 137 MEQ/L (136-145)
[2017-11-04 00:50] LABS: ALKALINE PHOSPHATASE 104 U/L (45-117); ALT (GPT) 15 U/L (10-53); TOTAL BILIRUBIN ADULT 0.2 MG/DL (0.2-1.0); TOTAL PROTEIN 8.8 GM/DL (6.4-8.2)
--- NOTE | 2017-11-04 01:04 | RADRPT ---
EXAM DATE/TIME: 11/04/2017 00:07 [place] COMPARISON: CHEST PA & LAT, September 27, 2017, 13:03. INDICATIONS : Shortness of breath and cough. MEDICAL HISTORY : None. SURGICAL HISTORY : None. ENCOUNTER: Initial ACUITY: 2 days PAIN SCORE: 0/10 LOCATION: chest FINDINGS: A single view of the chest demonstrates the lungs to be symmetrically aerated without evidence of mas s, infiltrate or effusion. The cardiomediastinal contours are unremarkable. No fracture of the post erior right 7th rib. CONCLUSION: No infiltrate seen. Phu Fermin MD on November 04, 2017 at 1:02 Board Certified Radiologist. This report was verified electronically.
[2017-11-04 02:40] LABS: BACTERIA, URINE RARE /hpf; BILIRUBIN, URINE NEG (NEG); BLOOD, URINE NEG (NEG); GLUCOSE,URINE NEG (NEG); KETONE, URINE NEG (NEG); NITRITE,URINE NEG (NEG); SQUAMOUS EPITHELIAL CELL URINE 1 /hpf (0-5); URINE COLOR LIGHT-YELLOW (YELLW/STRAW); URINE LEUKOCYTE ESTERASE NEG (NEG)
[2017-11-04 04:09] VITALS: BP 110/61; PULSE 72; RESP 16; O2SAT 97
[2017-11-04 05:58] VITALS: BP 105/69; PULSE 80; RESP 16; O2SAT 97
[2017-11-04 07:34] VITALS: BP 100/57; PULSE 76; RESP 15; O2SAT 98
[2017-11-04 09:57] VITALS: BP 112/76; PULSE 80; RESP 14; O2SAT 98
--- NOTE | 2017-11-04 10:37 | PD ---
Physical Exam Date Seen by Provider: Nov 04, 2017 Narrative Patient was checked out to me this morning as a "sleep it off." She is now awake and ready to go. Data Data Last Documented VS Vital Signs Date Time Temp Pulse Resp B/P (MAP) Pulse Ox O2 Delivery O2 Flow Rate FiO2 11/04/17 09:57 80 14 112/76 (88) 98 Room Air 11/04/17 05:58 2.00 11/03/17 23:36 97.6 Orders Orders Sepsis Workup Initiated (11/03/17 ) Complete Blood Count With Diff (11/03/17 23:52) Comprehensive Metabolic Panel (11/03/17 23:52) Lactic Acid Sepsis Protocol (11/03/17 23:52) Urinalysis - C+S If Indicated (11/03/17 23:52) Influenzae A/B Antigen (11/03/17 23:52) Blood Culture (11/03/17 23:52) Chest, Single Ap (11/03/17 23:52) Ecg Monitoring (11/03/17 23:52) Iv Access Insert/Monitor (11/03/17 23:52) Oximetry (11/03/17 23:52) Acetaminophen (Tylenol) (11/04/17 00:00) Sodium Chlor 0.9% 1000 Ml Inj (Ns 1000 M (11/03/17 23:52) Sodium Chlor 0.9% 1000 Ml Inj (Ns 1000 M (11/03/17 23:52) Group A Rapid Strep Screen (11/03/17 23:52) Alcohol (Ethanol) (11/03/17 23:52) Strep Culture (Group A) (11/04/17 00:00) Urine Culture (11/03/17 02:00) Labs Laboratory Tests Test 11/03/17 02:00 11/04/17 00:05 Urine Color LIGHT-YELLOW Urine Turbidity CLEAR Urine pH 5.0 Urine Specific Brantley 1.003 Urine Protein NEG mg/dL Urine Glucose (UA) NEG mg/dL Urine Ketones NEG mg/dL Urine Occult Blood NEG Urine Nitrite NEG Urine Bilirubin NEG Urine Urobilinogen LESS THAN 2.0 MG/DL Urine Leukocyte Esterase NEG Urine WBC LESS THAN 1 /hpf Urine Squamous Epithelial Cells 1 /hpf Urine Bacteria RARE /hpf Microscopic Urinalysis Comment CATH-CULTURE IND White Blood Count 16.3 TH/MM3 Red Blood Count 4.68 MIL/MM3 Hemoglobin 14.2 GM/DL Hematocrit 42.4 % Mean Corpuscular Volume 90.5 FL Mean Corpuscular Hemoglobin 30.4 PG Mean Corpuscular Hemoglobin Concent 33.5 % Red Cell Distribution Width 16.8 % Platelet Count 396 TH/MM3 Mean Platelet Volume 7.5 FL Neutrophils (%) (Auto) 74.0 % Lymphocytes (%) (Auto) 19.0 % Monocytes (%) (Auto) 4.5 % Eosinophils (%) (Auto) 1.9 % Basophils (%) (Auto) 0.6 % Neutrophils # (Auto) 12.1 TH/MM3 Lymphocytes # (Auto) 3.1 TH/MM3 Monocytes # (Auto) 0.7 TH/MM3 Eosinophils # (Auto) 0.3 TH/MM3 Basophils # (Auto) 0.1 TH/MM3 CBC Comment DIFF FINAL Differential Comment Blood Urea Nitrogen 12 MG/DL Creatinine 0.94 MG/DL Random Glucose 103 MG/DL Total Protein 8.8 GM/DL Albumin 3.9 GM/DL Calcium Level 8.9 MG/DL Alkaline Phosphatase 104 U/L Aspartate Amino Transf (AST/SGOT) 14 U/L Alanine Aminotransferase (ALT/SGPT) 15 U/L Total Bilirubin 0.2 MG/DL Sodium Level 137 MEQ/L Potassium Level 3.6 MEQ/L Chloride Level 103 MEQ/L Carbon Dioxide Level 22.0 MEQ/L Anion Gap 12 MEQ/L Estimat Glomerular Filtration Rate 62 ML/MIN Lactic Acid Level 1.5 mmol/L Ethyl Alcohol Level 206 MG/DL [facility] Supervised Visit with CAITLYN: No Diagnosis Primary Impression: Alcohol intoxication Qualified Codes: F10.920 - Alcohol use, unspecified with intoxication, uncomplicated Additional Impression: URI (upper respiratory infection) Qualified Codes: J06.9 - Acute upper respiratory infection, unspecified Referrals: [facility] day Patient Instructions: General Instructions, Upper Respiratory Infection (ED), Alcohol Intoxication (ED) Departure Forms: Work Release, Enter return to work date: Nov 05, 2017 Tests/Procedures Disposition: 01 DISCHARGE HOME Condition: Stable Mary Mcmullen MD Nov 04, 2017 10:37
== END 2017-11-04 10:58 | disposition home or self-care (01) ==
LOC: NEPE 23:02
DX: F10.920 Alcohol use, unspecified with intoxication, uncomplicated (principal); J06.9 Acute upper respiratory infection, unspecified; F17.200 Nicotine dependence, unspecified, uncomplicated; Y90.7 Blood alcohol level of 200-239 mg/100 ml; Z79.899 Other long term (current) drug therapy
CPT/HCPCS: 71045; 80053; 80307; 81001; 83605; 85025; 87040; 87081; 87086; 87804; 87880; 99284; J7030